=== PATIENT | female | born 1940 | race Caucasian/White ===

== ENCOUNTER → 2020-08-27 17:28 | Outpatient (CLI) | payer MEDICARE, OTHER, SELFPAY | PROVIDERS: PCP Family Medicine; Referring Provider Family Medicine; Visit Provider Family Medicine | DX: N39.0 Urinary tract infection, site not specified (principal) | CPT/HCPCS: 87086; 87088 ==

== ENCOUNTER 2020-10-01 15:33 | Inpatient (IN) | payer MEDICARE, OTHER, SELFPAY ==
[2020-10-01] VITALS (9 sets, daily range): BP systolic 88–106; BP diastolic 61–74; PULSE 104–127; RESP 16–30; TEMP 36.4–36.9; O2SAT 84–100; BMI 23.4; BMI 23.3
--- NOTE | 2020-10-01 16:11 | EDS_ITS ---
HPI History of Present Illness Chief Complaint: Palpitations Detail of Chief Complaint: Paroxysmal intermittent atrial fibrillation and dyspnea Informant: patient and family Onset/Context/Timing Onset: Days (A. fib since Sunday dyspnea for approximately 1 week) Context: Sudden Onset Timing: Continuous and Intermittent (The atrial fibrillation is intermittent per interrogation of pacemaker/AICD) Quality: The dyspnea has been constant and has increased dyspnea with walking. Current Severity: Mild Maximum Severity: Moderate Worsened by: Dyspnea on exertion Relieved by: Nothing Associated Symptoms Associated Symptoms: No chest pain, no infectious symptoms. Narrative Narrative: Patient is an elderly woman who presents with paroxysmal intermittent atrial fibrillation and dyspnea. Her initial blood pressure was 88/62. She is on Eliquis. She states has been compliant with her doses. She does complain of palpitations increased shortness of breath. She denies chest pain or pressure. She does have chronic orthopnea. Denies PND. She does admit to mild swelling of her legs. She is on Bumex. She is also taking amiodarone and metoprolol for her chronic atrial fibrillation. She denies fever, chills night sweats. She denies ocular, visual auditory symptoms. She denies abdominal pain, nausea, vomiting diarrhea. She denies dysuria, frequency, urgency or hematuria. She denies symptoms of claudication. Apparently she was last cardioverted 2 years ago. She was cardioverted by her [place] director hematology. Prior similar symptoms: Yes Recent Illness/Hospitalization: No [facility] Medical History CHF (congestive heart failure) Essential (primary) hypertension ICD (implantable cardioverter-defibrillator), dual, in situ Malignant neoplasm of female breast Mixed hyperlipidemia NSVT (nonsustained ventricular tachycardia) Persistent atrial fibrillation Primary cardiomyopathy Home Medications Atorvastatin Calcium 20 mg PO QHS 06/21/20 [History Last Taken Unknown] Bumetanide 2 mg PO BID 06/21/20 [History Last Taken Unknown] Eliquis 5 mg PO BID 06/21/20 [History Last Taken Unknown] Levothyroxine 50 mcg PO DAILY 06/21/20 [History Last Taken Unknown] Losartan Potassium 12.5 mg PO 06/21/20 [History Last Taken Unknown] Metolazone 2.5 mg PO 06/21/20 [History Last Taken Unknown] Metoprolol Tartrate 12.5 mg PO DAILY 06/21/20 [History Last Taken Unknown] Potassium Chloride 10 meq PO BID 06/21/20 [History Last Taken Unknown] Spironolactone 12.5 mg PO 06/21/20 [History Last Taken Unknown] Vitamin D 2,000 units PO QHS 06/21/20 [History Last Taken Unknown] Amiodarone 100 mg PO DAILY 07/28/20 [History Last Taken Unknown] digestive enzymes 1 tab PO DAILY 10/01/20 [History Last Taken Unknown] guaifenesin 600 mg PO QHS 10/01/20 [History Last Taken Unknown] loratadine 10 mg PO DAILY 10/01/20 [History Last Taken Unknown] polyethylene glycol 3350 [Miralax] 17 g PO DAILY PRN 10/01/20 [History Last Taken Unknown] Allergy/AdvReac Type Severity Reaction Status Date / Time No Known Allergies Allergy Verified 10/01/20 15:37 Social History (Updated 10/01/20 @ 16:[address] Priyank Larsen MD) household members: family housing: house Smoking Status: Never smoker alcohol intake: current alcohol intake frequency: other substance use type: does not use ROS ROS ED Constitutional Constitutional ED: Denies chills, fever(s) or subjective Eyes Eyes: Denies blurry vision, change in vision or diplopia ENT ENT ED: Denies ear pain, rhinorrhea or sore throat Cardiovascular Cardiovascular: Reports orthopnea, palpitations and racing heartbeat; Denies chest pain or paroxysmal nocturnal dyspnea Respiratory/Chest Respiratory/Chest: Reports dyspnea, dyspnea on exertion and orthopnea; Denies cough, paroxysmal nocturnal dyspnea or sputum Gastrointestinal Gastrointestinal: Denies abdominal pain, diarrhea, nausea or vomiting Genitourinary Genitourinary ED: Denies dysuria, hematuria or urinary frequency Musculoskeletal Musculoskeletal: Denies arthralgias, back pain, myalgias or neck pain Integumentary Reports rash and other Details: Patient has venous stasis dermatitis Neurologic Neurologic: Reports weakness; Denies headache(s) or paresthesias Endocrine Endocrinology: Denies polydipsia, polyphagia or polyuria Allergic/Immunologic Allergic/Immunologic ED: Denies urticaria EXAM Physical Exam Const Vital Signs: 10/01/20 15:34 10/01/20 16:00 10/01/20 16:11 Temperature 97.6 F L Temperature Source Temporal Pulse Rate 120 H 127 H Respiratory Rate 16 25 H Respiratory Effort Short of Breath Blood Pressure 88/62 L 106/61 Blood Pressure Mean 70 76 Pulse Ox 84 Oxygen Delivery Method Nasal Cannula Nasal Cannula Oxygen Flow Rate (L/min) 3 5 10/01/20 16:45 Temperature Temperature Source Pulse Rate Respiratory Rate Respiratory Effort Blood Pressure Blood Pressure Mean Pulse Ox Oxygen Delivery Method Nasal Cannula Oxygen Flow Rate (L/min) 5 Positive well nourished and well developed General Appearance ED: well developed and other Patient has mild retractions. She has mild conversational dyspnea. She appears cachectic. HEENT Reports dry mucous membranes HEENT Narrative: Nares patent. Ears normal. Posterior pharynx unremarkable. Trachea midline. No inspiratory expiratory stridor. Mouth ED: Yes dry mucous membranes Mouth: dry mucous membranes Eyes PERRL and EOMs intact bilaterally General Eye ED: Negative for pale conjunctiva or scleral icterus Neck no lymphadenopathy, supple and no JVD Resp Auscultation: rales bilateral mid and diminished lung sounds Cardio no murmurs Rate: tachycardic Rhythm: abnormal rhythm GI normal to inspection, nondistended, normoactive bowel sounds and non-tender Palpation: soft Back/Spine no CVA tenderness Cervical Spine: Negative for cervical spine tenderness Thoracic Spine / Upper Back: Negative for thoracic spinal tenderness or paraspinal muscle tenderness Extremity Negative for normal to inspection Extremity Narrative: Venous stasis dermatitis General Extremety ED: Yes edema; Negative for tenderness General Extremity: edema Neuro oriented x3 and CN's II-XII intact bilaterally Sensorium / Orientation: alert Psych mental status grossly normal Skin no rashes or lesions noted and no wounds MDM MDM MDM Narrative Medical decision making narrative: Clinically patient is in heart failure most likely due to the a BM/A. fib flutter with rapid ventricular response. Clinically she is fluid overloaded. 40 mg of Lasix IV push was ordered. EKG, chest x-ray and appropriate labs including troponin was ordered. Patient is on 3 diuretics and probable cause of her hyponatremia and hyperchloremia. Because of the elevated CO2 a VBG was ordered. We will need to discuss CODE STATUS. Patient is DNR Comfort Care arrest with no intubation or CPR. Hospitalist has seen patient and will admit to PCU Lab Data Labs: Laboratory Results - last 24 hr 10/01/20 10/01/20 10/01/20 16:00 16:00 16:00 WBC 12.1 H RBC 3.88 L Hgb 13.0 Hct 39.9 MCV 102.8 H MCH 33.5 H MCHC 32.6 RDW Std Deviation 56.2 H RDW Coeff of Tita 14.9 H Plt Count 185 MPV 10.2 Immature Gran % (Auto) 0.300 Neut % (Auto) 86.7 H Lymph % (Auto) 5.4 L Smyth % (Auto) 6.7 Eos % (Auto) 0.7 Baso % (Auto) 0.2 Absolute Neuts (auto) 10.5 H Absolute Lymphs (auto) 0.65 L Nucleated RBC % 0 Sodium 124 L Potassium 4.5 Chloride 72 L* Carbon Dioxide 43.0 H Anion Gap 9 BUN 46 H Creatinine 1.58 H Estim Creat Clear Calc 20.74 Est GFR (MDRD) Af Amer 41 L Est GFR (MDRD) Non-Af 34 L BUN/Creatinine Ratio 29.1 H Glucose 137 H Lactic Acid Calcium 10.3 H Total Bilirubin 1.20 H AST 58 H ALT 35 Alkaline Phosphatase 106 Troponin I < 0.015 B-Natriuretic Peptide 2427.1 H Total Protein 7.8 Albumin 3.7 Globulin 4.1 Albumin/Globulin Ratio 0.9 10/01/20 16:38 WBC RBC Hgb Hct MCV MCH MCHC RDW Std Deviation RDW Coeff of Tita Plt Count MPV Immature Gran % (Auto) Neut % (Auto) Lymph % (Auto) Smyth % (Auto) Eos % (Auto) Baso % (Auto) Absolute Neuts (auto) Absolute Lymphs (auto) Nucleated RBC % Sodium Potassium Chloride Carbon Dioxide Anion Gap BUN Creatinine Estim Creat Clear Calc Est GFR (MDRD) Af Amer Est GFR (MDRD) Non-Af BUN/Creatinine Ratio Glucose Lactic Acid 2.3 H* Calcium Total Bilirubin AST ALT Alkaline Phosphatase Troponin I B-Natriuretic Peptide Total Protein Albumin Globulin Albumin/Globulin Ratio Radiography Diagnostic Testing: Radiology Impression Chest X-Ray 10/01/20 16:42 IMPRESSION: Cardiomegaly with pulmonary edema. Cannot rule out superimposed infection in the right lower lung. Electronically Signed: Gio Campo MD at 17:15 EDT Tel , Service support , EKG Initial EKG: Interpretation: Atrial Fibrillation (Atrial fib flutter with ventricular rate of 131. QRS duration 140 ms. QT duration 388 ms. [place]anchard is to the left. There is a nonspecific intraventricular conduction delay and nonspecific ST changes due to the intraventricular conduction delay.) Critical Care Time Critical Care Time: Yes Critical care time (excluding procedures): 30-74 minutes (33 minutes), Including time spent: (History, physical, documentation, review of prior records from outside facility, initiation of treatment interpretation of laboratory results including EKG and chest x-ray), Discussing w/Patient &/or Family/Senior Instructional Designer, Discussing w/Consultants and Arranging Admission or Transfer Discharge Plan Triage Chief Complaint: Palpitations ED Provider: Priyank Larsen Dx/Rx/DC Orders Clinical Impression: Acute on chronic respiratory failure with hypercapnia, Atrial fibrillation with rapid ventricular response, Acute on chronic congestive heart failure, Hyponatremia, Hyperchloremia, Ataxia with lactic acidosis I, Arterial hypotension Prescriptions: No Action Atorvastatin Calcium tablet 20 mg PO QHS RF: 0 Bumetanide tablet 2 mg PO BID RF: 0 Eliquis tablet 5 mg PO BID RF: 0 Levothyroxine tablet 50 mcg PO DAILY RF: 0 Losartan Potassium tablet 12.5 mg PO RF: 0 Metolazone tablet 2.5 mg PO RF: 0 Metoprolol Tartrate tablet 12.5 mg PO DAILY RF: 0 Potassium Chloride tablet 10 meq PO BID RF: 0 Spironolactone tablet 12.5 mg PO RF: 0 Vitamin D capsule 2,000 units PO QHS RF: 0 Amiodarone 100 MG tablet 100 mg PO DAILY RF: 0 digestive enzymes Tablet 1 tab PO DAILY RF: 0 guaifenesin 600 mg Tablet Extended Release 600 mg PO QHS RF: 0 polyethylene glycol 3350 [Miralax] 17 gram Powder In Packet 17 g PO DAILY PRN (Reason: Constipation) RF: 0 loratadine 10 mg Tablet 10 mg PO DAILY RF: 0 Primary Care Provider: Carmen Lee Referrals: Carmen Lee MD [Primary Care Provider] - Disposition Disposition: Acute Care [facility]
--- NOTE | 2020-10-01 16:13 | EKG12_ITS ---
Test Reason : AFIB Blood Pressure : / mmHG Vent. Rate : 131 BPM Atrial Rate : 267 BPM P-R Int : 000 ms QRS Dur : 140 ms QT Int : 388 ms P-R-T Axes : 000 -76 102 degrees QTc Int : 572 ms Atrial flutter with variable A-V block Left axis deviation Non-specific intra-ventricular conduction block Nonspecific T wave abnormality Abnormal ECG Confirmed by URSULA DAMIAN, CHICHI ([id number]), editorial director VIPIN CHAGN ([id number]) on 10/04/2020 11:14:31 A M Referred By: HAN Confirmed By:JETT VERGARA MD
[2020-10-01] MEDS: Furosemide 40 MG/4 ML Vial IV ×2 (16:41→21:47)
--- NOTE | 2020-10-01 16:42 | RAD_ITS ---
INDICATION: Dyspnea, bilateral rales EXAMINATION/TECHNIQUE: X-RAY - XR Chest 1 View COMPARISON: None. FINDINGS: There is pulmonary edema. Tortuous and calcified thoracic aorta. The heart is mildly enlarged. Left-sided cardiac device. Multiple median sternotomy wires. Aortic valve replacement. No pleural effusion or pneumothorax. Senescent changes of the bones. RAD/Chest 1 View (Portable) IMPRESSION: Cardiomegaly with pulmonary edema. Cannot rule out superimposed infection in the right lower lung. Electronically Signed: Gio Campo MD at 17:15 EDT Tel , Service support ,
[2020-10-01 16:45] LABS: Absolute Lymphocyte Count 0.65 X10^3/uL (0.83-4.51); Absolute Neutrophil Count 10.5 X10^3/uL (2.0-7.7); Basophil# 0.03 X10^3/uL; Basophil% 0.2 % (0-1); Eosinophil# 0.08 X10^3/uL; Eosinophils% 0.7 % (0-5); Hematocrit 39.9 % (37-47); Lymphocyte # 0.65 X10^3/ul (0.83-4.51); Lymphocyte % 5.4 % (19-41); Mean Corp Hgb Conc 32.6 g/dL (32-36); Mean Corpuscular Hgb 33.5 pg (27.0-32.0); Mean Corpuscular Volume 102.8 fL (81-99); Mean Platelet Vol. 10.2 fl (6.2-12.0); Monocyte# 0.81 X10^3/uL; Monocyte% 6.7 % (0-10); NRBC Flagged by Analyzer 0 % (0-5); Neutrophil # 10.49 X10^3/uL (2.7-7.7); Neutrophil % 86.7 % (47-70); Platelet Count 185 K/mm3 (150-450); RBC Distribution Width CV 14.9 % (11.6-14.6); RBC Distribution Width SD 56.2 fl (35.1-43.9); Red Blood Count 3.88 M/mm3 (4.2-5.4); White Blood Count 12.1 K/mm3 (4.4-11.0)
[2020-10-01 17:03] LABS: BNP,B-Type NATRIURETIC PEPTIDE 2427.1 pg/mL (0-100)
[2020-10-01 17:21] LABS: ALB/GLOB Ratio 0.9 RATIO (0.9-2.4); AST(SGOT) 58 U/L (15-37); Alanine Aminotransfer ALT/SGPT 35 U/L (13-56); Albumin, Serum 3.7 g/dL (3.2-5.0); Alkaline Phosphatase 106 U/L (45-117); Anion Gap 9 (5-15); BUN 46 mg/dL (7-18); BUN/Creat Ratio 29.1 RATIO (10-20); Calcium,Total 10.3 mg/dL (8.5-10.1); Chloride 72 mmol/L (98-107); Creatinine, Serum 1.58 mg/dL (0.55-1.02); EST Glomerular Filtration Rate 34 mL/min (>60); Est Glom Filt Rate - Afr Amer 41 mL/min (>60); Estimated Creatinine Clearance 20.74 ml/min; Globulin 4.1 g/dL (2.2-4.2); Glucose 137 mg/dL (74-106); Potassium 4.5 mmol/L (3.5-5.1); Protein, Total 7.8 g/dL (6.4-8.2); Sodium Level 124 mmol/L (136-145)
[2020-10-01 17:21] LABS: Lactic Acid 2.3 mmol/L (0.4-1.9)
--- NOTE | 2020-10-01 18:03 | HP.PCM_ITS ---
Documented by User: Salma Guadalupe, JADA-C 10/01/20 18:18 HPI - General HPI Narrative JOSE MAHONEY, is a 80 F who presents with increasing shortness of breath. Patient states that she has had heart failure following treatment for breast cancer years ago. Patient is chronically on oxygen at 3 L nasal cannula. Patient with in [facility] in August for CHF exacerbation and states she recently moved from [place]. Daughter has discharge paperwork from [facility] but does not include all test completed during her admission. It is unclear whether a echocardiogram was performed at that time. Will request records from [facility]. [facility] Medical History (Updated 10/01/20 @ 18:41 by Mariah Eid) Breast cancer CHF (congestive heart failure) COPD (chronic obstructive pulmonary disease) Essential (primary) hypertension Hearing loss, left Hearing loss, right Hypothyroidism ICD (implantable cardioverter-defibrillator), dual, in situ Malignant neoplasm of female breast Mixed hyperlipidemia NSVT (nonsustained ventricular tachycardia) On home oxygen therapy Osteoporosis Persistent atrial fibrillation Primary cardiomyopathy Pulmonary hypertension Skin cancer of face Wears hearing aid in both ears Home Medications Atorvastatin Calcium 20 mg PO QHS 06/21/20 [History Last Taken Unknown] Bumetanide 2 mg PO BID 06/21/20 [History Last Taken Unknown] Eliquis 5 mg PO BID 06/21/20 [History Last Taken Unknown] Levothyroxine 50 mcg PO DAILY 06/21/20 [History Last Taken Unknown] Losartan Potassium 12.5 mg PO 06/21/20 [History Last Taken Unknown] Metolazone 2.5 mg PO 06/21/20 [History Last Taken Unknown] Metoprolol Tartrate 12.5 mg PO DAILY 06/21/20 [History Last Taken Unknown] Potassium Chloride 10 meq PO BID 06/21/20 [History Last Taken Unknown] Spironolactone 12.5 mg PO 06/21/20 [History Last Taken Unknown] Vitamin D 2,000 units PO QHS 06/21/20 [History Last Taken Unknown] Amiodarone 100 mg PO DAILY 07/28/20 [History Last Taken Unknown] cholecalciferol (vitamin D3) [Vitamin D3] 50 mcg PO DAILY 10/01/20 [History Last Taken Unknown] digestive enzymes 1 tab PO DAILY 10/01/20 [History Last Taken Unknown] guaifenesin 600 mg PO QHS 10/01/20 [History Last Taken Unknown] loratadine 10 mg PO DAILY 10/01/20 [History Last Taken Unknown] losartan 12.5 mg PO DAILY 10/01/20 [History Last Taken Unknown] metoprolol succinate 12.5 mg PO DAILY 10/01/20 [History Last Taken Unknown] mupirocin 1 applic TOPICAL BID 10/01/20 [History Last Taken 10/01/20] polyethylene glycol 3350 [Miralax] 17 g PO DAILY PRN 10/01/20 [History Last Taken Unknown] spironolactone 12.5 mg PO DAILY 10/01/20 [History Last Taken Unknown] Allergy/AdvReac Type Severity Reaction Status Date / Time amoxicillin AdvReac intolerance Verified 10/01/20 18:13 codeine AdvReac intolerance Verified 10/01/20 18:13 iodine AdvReac intolerance Verified 10/01/20 18:13 oxycodone AdvReac intolerance Verified 10/01/20 18:13 Penicillins AdvReac intolerance Verified 10/01/20 18:13 Surgical History (Updated 10/01/20 @ 18:38 by Mariah Eid) History of cataract removal with insertion of prosthetic lens History of mitral valve repair History of tricuspid valve repair Social History household members: family housing: house Smoking Status: Never smoker alcohol intake: current alcohol intake frequency: other substance use type: does not use ROS Constitutional Constitutional: Reports weight gain; Denies anorexia, chills, fatigue, malaise or weakness Cardiovascular Cardiovascular: Reports edema and palpitations; Denies chest pain or paroxysmal nocturnal dyspnea Respiratory/Chest Respiratory/Chest: Reports portable oxygen @ home, shortness of breath at rest and shortness of breath with exertion; Denies cough Gastrointestinal Gastrointestinal: Denies abdominal pain, constipation, diarrhea, nausea or vomiting Genitourinary Genitourinary: Denies dysuria Musculoskeletal Musculoskeletal: Denies back pain, extremity pain, joint pain or joint stiffness Integumentary Integumentary: Denies dry skin Neurologic Neurologic: Denies abnormal gait, abnormal speech, confusion or dizziness Psychiatric Psychiatric: Denies anxiety or depression Endocrine Endocrinology: Denies change in body appearance Hematologic/Lymphatic Hematologic/Lymphatic: Denies easy bleeding or easy bruising Vital Signs Vital Signs Vital Signs: 10/01/20 15:34 10/01/20 16:00 10/01/20 16:11 Temperature 97.6 F L Temperature Source Temporal Pulse Rate 120 H 127 H Respiratory Rate 16 25 H Respiratory Effort Short of Breath Blood Pressure 88/62 L 106/61 Blood Pressure Mean 70 76 Pulse Ox 84 Oxygen Delivery Method Nasal Cannula Nasal Cannula Oxygen Flow Rate (L/min) 3 5 10/01/20 16:45 Temperature Temperature Source Pulse Rate Respiratory Rate Respiratory Effort Blood Pressure Blood Pressure Mean Pulse Ox Oxygen Delivery Method Nasal Cannula Oxygen Flow Rate (L/min) 5 Weight Weight: 120 lb Body Mass Index (BMI) 23.4 Physical Exam Const alert and oriented x3 General Appearance: cooperative HEENT normocephalic and head/scalp atraumatic Eyes conjunctivae normal and no scleral icterus Neck no lymphadenopathy, supple and no JVD General: trachea midline Resp Effort and Inspection: tachypneic and labored Auscultation: wheezes expiratory wheezes Cardio S1 normal heart sound and S2 normal heart sound Rate: tachycardic Rhythm: abnormal rhythm irregularly irregular (History of A. fib) GI normal to inspection, nondistended, normoactive bowel sounds, soft to palpation and non-tender Extremity normal capillary refill and no clubbing, cyanosis or edema General Extremity: no tenderness to palpation of joints or extremities Skin General Skin Exam: no breakdown and turgor normal Lesions: no lesions Rashes: no rashes Neuro oriented x3, moves all extremities and no focal motor deficits Speech: speech normal Psych thought process normal, cooperative and affect normal Appearance: appropriate Results Lab / Micro Data Result Diagrams: 10/01/20 16:00 10/01/20 16:00 Labs: Laboratory Results - last 24 hr 10/01/20 10/01/20 10/01/20 16:00 16:00 16:00 WBC 12.1 H RBC 3.88 L Hgb 13.0 Hct 39.9 MCV 102.8 H MCH 33.5 H MCHC 32.6 RDW Std Deviation 56.2 H RDW Coeff of Tita 14.9 H Plt Count 185 MPV 10.2 Immature Gran % (Auto) 0.300 Neut % (Auto) 86.7 H Lymph % (Auto) 5.4 L [place] % (Auto) 6.7 Eos % (Auto) 0.7 Baso % (Auto) 0.2 Absolute Neuts (auto) 10.5 H Absolute Lymphs (auto) 0.65 L Nucleated RBC % 0 Sodium 124 L Potassium 4.5 Chloride 72 L* Carbon Dioxide 43.0 H Anion Gap 9 BUN 46 H Creatinine 1.58 H Estim Creat Clear Calc 20.74 Est GFR (MDRD) Af Amer 41 L Est GFR (MDRD) Non-Af 34 L BUN/Creatinine Ratio 29.1 H Glucose 137 H Lactic Acid Calcium 10.3 H Total Bilirubin 1.20 H AST 58 H ALT 35 Alkaline Phosphatase 106 Troponin I < 0.015 B-Natriuretic Peptide 2427.1 H Total Protein 7.8 Albumin 3.7 Globulin 4.1 Albumin/Globulin Ratio 0.9 10/01/20 16:38 WBC RBC Hgb Hct MCV MCH MCHC RDW Std Deviation RDW Coeff of Tita Plt Count MPV Immature Gran % (Auto) Neut % (Auto) Lymph % (Auto) [place] % (Auto) Eos % (Auto) Baso % (Auto) Absolute Neuts (auto) Absolute Lymphs (auto) Nucleated RBC % Sodium Potassium Chloride Carbon Dioxide Anion Gap BUN Creatinine Estim Creat Clear Calc Est GFR (MDRD) Af Amer Est GFR (MDRD) Non-Af BUN/Creatinine Ratio Glucose Lactic Acid 2.3 H* Calcium Total Bilirubin AST ALT Alkaline Phosphatase Troponin I B-Natriuretic Peptide Total Protein Albumin Globulin Albumin/Globulin Ratio Radiology Impression Chest X-Ray 10/01/20 16:42 IMPRESSION: Cardiomegaly with pulmonary edema. Cannot rule out superimposed infection in the right lower lung. Electronically Signed: Gio Campo MD at 17:15 EDT Tel , Service support , Assessment & Plan Assessment/Plan (1) Acute on chronic respiratory failure with hypercapnia: (2) Atrial fibrillation with rapid ventricular response: (3) Acute on chronic congestive heart failure: QUALIFIERS: Heart failure type: systolic Qualified Code(s): I50.23 - Acute on chronic systolic (congestive) heart failure (4) Hyponatremia: (5) Hyperchloremia: PLAN: 1. Acute on chronic congestive heart failure -Admit to PCU for continuous cardiac monitoring -We will hold as needed metolazone at this time, continue daily spironolactone. -We will hold p.o. Bumex, IV Lasix 40 mg every 8 hour ordered -Cardiac diet with 1500 mL fluid restriction ordered -Trend cardiac enzymes -Daily weights with strict intake and output ordered -PT and OT to eval and treat -EKG in a.m. -BMP and CBC daily, trend BUN and creatinine 2. Acute on chronic respiratory failure with hypercapnia -Likely due to #1 3. Atrial fibrillation with rapid ventricular response -Amiodarone bolus given in ER, will increase metoprolol succinate from 12.5 to 25 mg daily -Continuous cardiac monitoring with daily a.m. EKGs and EKG as needed with rhythm change 4. Hyponatremia -Likely secondary to diuretic therapy -Due to CHF exacerbation will not initiate IV fluids at this time -Trend daily with BMP -Will check a mag and Phos due to electrolyte imbalance 5. Hypochloremia -See #4 6. Hypertension -Continue spironolactone, metoprolol. -Due to patient borderline hypotension will hold losartan at this time 7. Hypothyroidism -Continue levothyroxine 8. Presence of an AICD -Recently evaluated per daughter history. DVT prophylaxis-patient chronically anticoagulated with Eliquis This patient was seen by Salma Guadalupe NP-C under the supervision of Dr. Hylton. Documented by User: Dr. Gabriel Hylton, 10/01/20 18:48 HPI - General General Date of Admission: 10/01/20 [facility] Medical History (Updated 10/01/20 @ 18:41 by Mariah Eid) Breast cancer CHF (congestive heart failure) COPD (chronic obstructive pulmonary disease) Essential (primary) hypertension Hearing loss, left Hearing loss, right Hypothyroidism ICD (implantable cardioverter-defibrillator), dual, in situ Malignant neoplasm of female breast Mixed hyperlipidemia NSVT (nonsustained ventricular tachycardia) On home oxygen therapy Osteoporosis Persistent atrial fibrillation Primary cardiomyopathy Pulmonary hypertension Skin cancer of face Wears hearing aid in both ears Home Medications Atorvastatin Calcium 20 mg PO QHS 06/21/20 [History Last Taken Unknown] Bumetanide 2 mg PO BID 06/21/20 [History Last Taken Unknown] Eliquis 5 mg PO BID 06/21/20 [History Last Taken Unknown] Levothyroxine 50 mcg PO DAILY 06/21/20 [History Last Taken Unknown] Losartan Potassium 12.5 mg PO 06/21/20 [History Last Taken Unknown] Metolazone 2.5 mg PO 06/21/20 [History Last Taken Unknown] Metoprolol Tartrate 12.5 mg PO DAILY 06/21/20 [History Last Taken Unknown] Potassium Chloride 10 meq PO BID 06/21/20 [History Last Taken Unknown] Spironolactone 12.5 mg PO 06/21/20 [History Last Taken Unknown] Vitamin D 2,000 units PO QHS 06/21/20 [History Last Taken Unknown] Amiodarone 100 mg PO DAILY 07/28/20 [History Last Taken Unknown] cholecalciferol (vitamin D3) [Vitamin D3] 50 mcg PO DAILY 10/01/20 [History Last Taken Unknown] digestive enzymes 1 tab PO DAILY 10/01/20 [History Last Taken Unknown] guaifenesin 600 mg PO QHS 10/01/20 [History Last Taken Unknown] loratadine 10 mg PO DAILY 10/01/20 [History Last Taken Unknown] losartan 12.5 mg PO DAILY 10/01/20 [History Last Taken Unknown] metoprolol succinate 12.5 mg PO DAILY 10/01/20 [History Last Taken Unknown] mupirocin 1 applic TOPICAL BID 10/01/20 [History Last Taken 10/01/20] polyethylene glycol 3350 [Miralax] 17 g PO DAILY PRN 10/01/20 [History Last Taken Unknown] spironolactone 12.5 mg PO DAILY 10/01/20 [History Last Taken Unknown] Allergy/AdvReac Type Severity Reaction Status Date / Time amoxicillin AdvReac intolerance Verified 10/01/20 18:13 codeine AdvReac intolerance Verified 10/01/20 18:13 iodine AdvReac intolerance Verified 10/01/20 18:13 oxycodone AdvReac intolerance Verified 10/01/20 18:13 Penicillins AdvReac intolerance Verified 10/01/20 18:13 Surgical History (Updated 10/01/20 @ 18:38 by Mariah L Gessel) History of cataract removal with insertion of prosthetic lens History of mitral valve repair History of tricuspid valve repair Social History household members: family housing: house Smoking Status: Never smoker alcohol intake: current alcohol intake frequency: other substance use type: does not use Results Lab / Micro Data Result Diagrams: 10/01/20 16:00 10/01/20 16:00 Charges/Coding Addendum Addendum: Patient was seen and examined independently of Nellie Guadalupe, she had to the emergency room today with complaints of increased shortness of breath, t his is been worsening over the last couple of days. Patient has a history of chronic systolic congestive heart failure and is on home oxygen at 3 L. On examination she appeared fatigued and unwell, she is not visibly short of breath at rest. Vital signs as documented. Skin warm and dry and without overt rashes. Neck without JVD, thyroid appears normal, trachea is midline, neck is supple. Lungs-decreased breath sounds are noted bilaterally. Heart exam notable for irregular rhythm, normal sounds and absence of murmurs, rubs or gallops. Abdomen unremarkable and without evidence of organomegaly, masses, or abdominal aortic enlargement, bowel sounds are present in all 4 quadrants, no abdominal tenderness was noted. Extremities nonedematous, no cyanosis was noted, no clubbing was noted. Neuro: Cranial nerves II through XII are grossly intact, no focal motor deficits were noted, sensation to light touch and pinprick is intact, motor exam 5/5 throughout. Psych: Patient is alert and oriented x3, she does not appear anxious or depressed, she does not appear agitated. Patient's chest x-ray shows signs of congestive heart failure, her chloride and sodium were low. Patient required 5 L of nasal cannula oxygen to maintain her pulse ox above 90%. Patient will be admitted to PCU for acute on chronic systolic congestive heart failure with acute on chronic hypoxic respiratory failure, she will be placed on IV diuretics, her beta-anay will be increased for better rate control, she was given IV amiodarone by the emergency room physician today. Echocardiogram will be obtained as we do not have a recent echocardiogram available, her daughter states her ejection fraction is 20%. I h traci reviewed Nellie Guadalupe's history and physical including her medical assessment and plan of care and endorse it. Visit Charges Inpatient E&M: 80402 Init Hosp L3
--- NOTE | 2020-10-01 18:09 | NURSING ---
109 TERELETKSY AFIB RVR, ACUTE ON CHRONIC RESP FAILURE, CHF
[2020-10-01] MEDS: Amiodarone 200 MG Tablet 100 MG PO (19:50)
[2020-10-01 20:41] LABS: Reflex Lactate? Y
[2020-10-01] MEDS: guaiFENesin 600 MG Tablet PO (21:49)
[2020-10-01] MEDS: Cholecalciferol (VIT D3) 25 MCG TABLET (1,000 UNITS) 50 MCG PO (21:49)
[2020-10-01] MEDS: Atorvastatin Calcium 20 MG Tablet PO (21:49)
[2020-10-01] MEDS: Potassium Chloride Oral Tablet 10 MEQ PO (21:49)
[2020-10-01] MEDS: APIXABAN 5 MG TABLET PO (21:49)
[2020-10-01 22:04] LABS: Lactic Acid 3.5 mmol/L (0.4-1.9)
[2020-10-02] VITALS (16 sets, daily range): BP systolic 91–116; BP diastolic 64–92; PULSE 88–140; RESP 18–22; TEMP 36.3–36.9; O2SAT 94–100
[2020-10-02] MEDS: Menthol/Lanolin/Calamine/Znox 113 GM Tube 1 APPLIC TOPICAL ×3 (05:00→22:11)
[2020-10-02] MEDS: Furosemide 40 MG/4 ML Vial IV ×2 (05:01→14:08)
[2020-10-02] MEDS: Levothyroxine 50 MCG Tablet PO (05:01)
--- NOTE | 2020-10-02 05:55 | ECHOD_ITS ---
Reason For Study: CHF Procedure This was a 2D Doppler, Color Flow transthoracic echocardiogram. The study was technically difficult. Pt had to sit upright for exam due to severe SOB. Exam performed portable in patient room. Left Ventricle Mildly dilated left ventricle. The estimated ejection fraction is 10-15 %. There is evidence of diastolic dysfunction. There is severe global hypokinesis of the left ventricle. Right Ventricle Mildly dilated right ventricle. There is a pacemaker lead in the right ventricle. Mild global right ventricular systolic dysfunction. Atria The left atrium is moderately enlarged. Normal right atrium. No doppler evidence for ASD. Mitral Valve Evidence of mitral valve repair noted. There is no mitral valve stenosis. Trivial mitral valve insufficiency. Tricuspid Valve There is no tricuspid stenosis. Moderate (2+) tricuspid valve insufficiency. Pulmonary artery systolic pressure is 60 mmHg. Aortic Valve Trisinus/trileaflet aortic valve. There is no aortic stenosis. Mild (1+) aortic valve insufficiency. Pulmonic Valve There is no pulmonic valvular stenosis. Trivial pulmonic valve insufficiency. Great Vessels Normal aortic root. Pericardium/Pleural No pericardial effusion. MMode/2D Measurements & Calculations LVIDd: 6.0 cm IVSd: 0.67 cm Ao root diam: 3.4 cm LVIDs: 5.6 cm LVPWd: 0.62 cm RVDd: 4.3 cm FS: 6.8 % LAV(MOD-bp): 78.4 ml LA A4 area: 25.6 cm2 LA dimension(2D): 4.3 cm LAV(MOD-bp) Indexed: 52.4 ml/m2 LAV(MOD-sp2): 71.1 ml LAV(MOD-sp4): 84.1 ml RA A4 area: 22.6 cm2 Time Measurements MV dec time: 0.14 sec Doppler Measurements & Calculations MV E max aissatou: 141.8 cm/sec MV V2 max: 158.8 cm/sec TV V2 max: 85.6 cm/sec MV max P.1 mmHg TV max P.9 mmHg MV V2 mean: 81.2 cm/sec TV V2 mean: 50.8 cm/sec MV mean P.3 mmHg TV mean P.2 mmHg MV V2 VTI: 18.3 cm PA V2 max: 65.0 cm/sec PI end-d aissatou: 194.8 cm/sec TR max aissatou: 368.9 cm/sec TR max P.4 mmHg ECHO/Echo Complete Interpretation Summary Mildly dilated left ventricle. The estimated ejection fraction is 10-15 %. There is evidence of diastolic dysfunction. There is severe global hypokinesis of the left ventricle. Mild global right ventricular systolic dysfunction. The left atrium is moderately enlarged. Trivial mitral valve insufficiency. Moderate (2+) tricuspid valve insufficiency. Pulmonary artery systolic pressure is 60 mmHg. Mild (1+) aortic valve insufficiency. Ordering Physician: Salma Guadalupe Referring Physician: MABEL LICEA Performed By: Lyssa Castorena, RDCS, RVT
--- NOTE | 2020-10-02 05:55 | EKG12_ITS ---
Test Reason : Blood Pressure : / mmHG Vent. Rate : 126 BPM Atrial Rate : 138 BPM P-R Int : 000 ms QRS Dur : 146 ms QT Int : 332 ms P-R-T Axes : 000 -54 094 degrees QTc Int : 480 ms Atrial fibrillation Left axis deviation Non-specific intra-ventricular conduction block Abnormal ECG When compared with ECG of 02-OCT-2020 05:03, MANUAL COMPARISON REQUIRED, DATA IS UNCONFIRMED Confirmed by VINAY DAMIAN, KACI ([id number]), sports editor VIPIN CHANG ([id number]) on 10/05/2020 9:38:37 AM Referred By: MARY Confirmed By:KACI MCLEAN MD
[2020-10-02 07:34] LABS: Absolute Lymphocyte Count 0.64 X10^3/uL (0.83-4.51); Absolute Neutrophil Count 8.2 X10^3/uL (2.0-7.7); Basophil# 0.04 X10^3/uL; Basophil% 0.4 % (0-1); Eosinophil# 0.07 X10^3/uL; Eosinophils% 0.7 % (0-5); Hematocrit 34.8 % (37-47); Hemoglobin 11.6 g/dL (12.0-15.0); Lymphocyte # 0.64 X10^3/ul (0.83-4.51); Lymphocyte % 6.6 % (19-41); Mean Corp Hgb Conc 33.3 g/dL (32-36); Mean Corpuscular Hgb 33.8 pg (27.0-32.0); Mean Corpuscular Volume 101.5 fL (81-99); Mean Platelet Vol. 9.8 fl (6.2-12.0); Monocyte# 0.73 X10^3/uL; Monocyte% 7.5 % (0-10); NRBC Flagged by Analyzer 0 % (0-5); Neutrophil % 84.4 % (47-70); Platelet Count 149 K/mm3 (150-450); RBC Distribution Width CV 14.8 % (11.6-14.6); RBC Distribution Width SD 55.5 fl (35.1-43.9); Red Blood Count 3.43 M/mm3 (4.2-5.4); White Blood Count 9.7 K/mm3 (4.4-11.0)
[2020-10-02 07:54] LABS: Anion Gap 10 (5-15); BUN 42 mg/dL (7-18); BUN/Creat Ratio 32.1 RATIO (10-20); Calcium,Total 9.7 mg/dL (8.5-10.1); Chloride 76 mmol/L (98-107); Creatinine, Serum 1.31 mg/dL (0.55-1.02); EST Glomerular Filtration Rate 42 mL/min (>60); Est Glom Filt Rate - Afr Amer 50 mL/min (>60); Estimated Creatinine Clearance 25.01 ml/min; Glucose 114 mg/dL (74-106); Magnesium 2.6 mg/dL (1.6-2.6); Phosphorus 3.3 mg/dL (2.5-4.9); Potassium 3.5 mmol/L (3.5-5.1); Sodium Level 126 mmol/L (136-145)
[2020-10-02] MEDS: Potassium Chloride Oral Tablet 20 MEQ PO ×2 (08:52→16:39)
[2020-10-02] MEDS: Amiodarone 200 MG Tablet 100 MG PO (08:52)
[2020-10-02] MEDS: APIXABAN 5 MG TABLET PO ×2 (08:53→22:12)
[2020-10-02] MEDS: Loratadine 10 MG Tablet PO (08:53)
--- NOTE | 2020-10-02 10:45 | PN.HOSP_ITS ---
Documented by User: JOYCE ChicasC 10/02/20 11:04 Subjective Subjective Patient seen and examined. Patient states that overnight her shortness of breath had improved slightly however she is currently feeling short of breath again. Patient also reports a new onset cough this morning. Patient currently denies fever, chills, chest pain, nausea, vomiting. Objective Data Objective Data Vital Signs: Vital Signs Temp Pulse Resp BP Pulse Ox 98.1 F 108 H 20 H 94/64 98 10/02/20 09:00 10/02/20 09:00 10/02/20 09:00 10/02/20 09:00 10/02/20 09:00 Oxygen Flow Rate (L/min) 4 Oxygen Delivery Method Nasal Cannula Weight: 119 lb 14.903 oz Body Mass Index (BMI) 23.3 Intake & Output: Intake and Output for Last 24 Hours 09/30/20 10/01/20 10/02/20 23:59 23:59 23:59 Intake Total 103 / 103 250 / 250 Output Total 200 / 200 Balance 103 / 53 50 / 50 Lab / Micro Data Result Diagrams: 10/02/20 07:10 10/02/20 07:10 Labs: Laboratory Results - last 24 hr 10/01/20 10/01/20 10/01/20 16:00 16:00 16:00 WBC 12.1 H RBC 3.88 L Hgb 13.0 Hct 39.9 MCV 102.8 H MCH 33.5 H MCHC 32.6 RDW Std Deviation 56.2 H RDW Coeff of Tita 14.9 H Plt Count 185 MPV 10.2 Immature Gran % (Auto) 0.300 Neut % (Auto) 86.7 H Lymph % (Auto) 5.4 L [place] % (Auto) 6.7 Eos % (Auto) 0.7 Baso % (Auto) 0.2 Absolute Neuts (auto) 10.5 H Absolute Lymphs (auto) 0.65 L Nucleated RBC % 0 Sodium 124 L Potassium 4.5 Chloride 72 L* Carbon Dioxide 43.0 H Anion Gap 9 BUN 46 H Creatinine 1.58 H Estim Creat Clear Calc 20.74 Est GFR (MDRD) Af Amer 41 L Est GFR (MDRD) Non-Af 34 L BUN/Creatinine Ratio 29.1 H Glucose 137 H Lactic Acid Calcium 10.3 H Phosphorus Magnesium Total Bilirubin 1.20 H AST 58 H ALT 35 Alkaline Phosphatase 106 Troponin I < 0.015 B-Natriuretic Peptide 2427.1 H Total Protein 7.8 Albumin 3.7 Globulin 4.1 Albumin/Globulin Ratio 0.9 10/01/20 10/01/20 10/01/20 16:38 19:50 21:10 WBC RBC Hgb Hct MCV MCH MCHC RDW Std Deviation RDW Coeff of Tita Plt Count MPV Immature Gran % (Auto) Neut % (Auto) Lymph % (Auto) [place] % (Auto) Eos % (Auto) Baso % (Auto) Absolute Neuts (auto) Absolute Lymphs (auto) Nucleated RBC % Sodium Potassium Chloride Carbon Dioxide Anion Gap BUN Creatinine Estim Creat Clear Calc Est GFR (MDRD) Af Amer Est GFR (MDRD) Non-Af BUN/Creatinine Ratio Glucose Lactic Acid 2.3 H* 3.5 H* Calcium Phosphorus Magnesium Total Bilirubin AST ALT Alkaline Phosphatase Troponin I 0.021 B-Natriuretic Peptide Total Protein Albumin Globulin Albumin/Globulin Ratio 10/01/20 10/02/20 10/02/20 22:35 07:10 07:10 WBC 9.7 RBC 3.43 L Hgb 11.6 L Hct 34.8 L MCV 101.5 H MCH 33.8 H MCHC 33.3 RDW Std Deviation 55.5 H RDW Coeff of Tita 14.8 H Plt Count 149 L MPV 9.8 Immature Gran % (Auto) 0.400 Neut % (Auto) 84.4 H Lymph % (Auto) 6.6 L [place] % (Auto) 7.5 Eos % (Auto) 0.7 Baso % (Auto) 0.4 Absolute Neuts (auto) 8.2 H Absolute Lymphs (auto) 0.64 L Nucleated RBC % 0 Sodium 126 L Potassium 3.5 Chloride 76 L Carbon Dioxide 40.0 H Anion Gap 10 BUN 42 H Creatinine 1.31 H Estim Creat Clear Calc 25.01 Est GFR (MDRD) Af Amer 50 L Est GFR (MDRD) Non-Af 42 L BUN/Creatinine Ratio 32.1 H Glucose 114 H Lactic Acid Calcium 9.7 Phosphorus 3.3 Magnesium 2.6 Total Bilirubin AST ALT Alkaline Phosphatase Troponin I 0.015 B-Natriuretic Peptide Total Protein Albumin Globulin Albumin/Globulin Ratio Radiography Diagnostic Testing: Radiology Impression Chest X-Ray 10/01/20 16:42 IMPRESSION: Cardiomegaly with pulmonary edema. Cannot rule out superimposed infection in the right lower lung. Electronically Signed: Gio Campo MD at 17:15 EDT Tel , Service support , Physical Exam Const alert and oriented x3 General Appearance: cooperative HEENT normocephalic and head/scalp atraumatic Eyes conjunctivae normal and no scleral icterus Neck no lymphadenopathy, supple and no JVD General: trachea midline Resp Effort and Inspection: tachypneic and labored Auscultation: wheezes expiratory wheezes Cardio S1 normal heart sound and S2 normal heart sound Rate: tachycardic Rhythm: abnormal rhythm irregularly irregular (History of A. fib) GI normal to inspection, nondistended, normoactive bowel sounds, soft to palpation and non-tender Extremity normal capillary refill and no clubbing, cyanosis or edema General Extremity: no tenderness to palpation of joints or extremities Skin General Skin Exam: no breakdown and turgor normal Lesions: no lesions Rashes: no rashes Neuro oriented x3, moves all extremities and no focal motor deficits Speech: speech normal Psych thought process normal, cooperative and affect normal Appearance: appropriate Assessment & Plan Assessment/Plan (1) Acute on chronic congestive heart failure: QUALIFIERS: Heart failure type: systolic Qualified Code(s): I50.23 - Acute on chronic systolic (congestive) heart failure (2) Atrial fibrillation with rapid ventricular response: (3) Acute on chronic respiratory failure with hypercapnia: PLAN: 1. Acute on chronic congestive heart failure -Continue cardiac monitoring -Continue to hold as needed metolazone at this time -Continue daily spironolactone. -Continue to hold p.o. Bumex, IV Lasix 40 mg every 8 hour ordered -Cardiac diet with 1500 mL fluid restriction ordered -Cardiac enzymes negative x3 -Daily weights with strict intake and output -PT and OT to eval and treat -Echo ordered, results pending 2. Acute on chronic respiratory failure with hypercapnia -Likely due to #1 3. Acute on chronic kidney disease -Patient baseline BUN and creatinine unknown at this time, requested records from [facility] where patient's PCP is -Creatinine improved from 1.58 yesterday to 1.31 today with diuresis. 4. Atrial fibrillation with rapid ventricular response -Increased metoprolol succinate to 25 mg daily dose was held due to patient systolic blood pressure less than 100. -Heart rate currently 104-110, improved from yesterday -Continuous cardiac monitoring with daily a.m. EKGs and EKG as needed with rhythm change 5. Hyponatremia -Likely secondary to diuretic therapy -Due to CHF exacerbation will not initiate IV fluids at this time -Trend daily with BMP, slightly improved from 124 to 126 today 6. Hypochloremia -See #4 -Slightly improved from 72 to 76 today -Continue to trend with daily BMP 7. Hypertension -Continue spironolactone, metoprolol. -Due to patient continued hypotension will hold losartan at this time 8. Hypothyroidism -Continue levothyroxine 9. Presence of an AICD -Recently evaluated per daughter history. DVT prophylaxis-patient chronically anticoagulated with Eliquis This patient was seen by ALEXANDER Chicas under the supervision of Dr. Mcqueen. Documented by User: Dr. George Mcqueen MD 10/02/20 14:25 Objective Data Lab / Micro Data Result Diagrams: 10/02/20 07:10 10/02/20 07:10 Assessment & Plan Addt'l Comments This patient was seen in conjunction with Salma MUNOZ. I have independently interviewed and examined the patient and reviewed pertinent historical, laboratory, and other data. Please refer Miguelangel COOKC's note for details of this patient's presentation, findings, and recommendations. I have reviewed Salma MUNOZ's note and concur with documented findings. In brief, patient is a old female admitted with shortness of breath Physical Examination: GENERAL: Frail looking HEENT: Atraumatic; EYES; Anicteric, Normal Conjunctiva NECK; supple, normal thyroid, RESPIRATORY: Diminished to auscultation CARDIOVASCULAR: Irregular S1-S2 GI: soft, normoactive bowel sounds, : No Renal angle tenderness; EXTREMITIES: No edema, no clubbing, MUSCULOSKELETAL: no muscle waisting NEURO: Awake; no lateralizing signs. SKIN: No Rash PSYCH; Flat affect Assessment: 1. Acute on chronic congestive heart failure with suspected preserved ejection fraction 2. A. fib with RVR 3. Acute on chronic hypercapnic and hypoxic respiratory failure 4. Hypochloremic hyponatremia 5. Essential hypertension 6. Hypothyroidism 7. Cardiomyopathy status post AICD placement 8. Hypothyroidism Recommendations: 1. I have discussed the results of my overview and impressions with the patient 2. Options for management were reviewed Charges/Coding Visit Charges Inpatient E&M: 45351 Subs Hosp L3
--- NOTE | 2020-10-02 11:45 | CASEMGMT ---
RN JESSICA CASH MANAGEMENT CLERK CM to room to meet with patient for initial transition planning/care coordination assessment. RN JESSICA introduced self and role at [facility].? Pt voices understanding and consents to assessment at this time.? Pt sitting up in chair in room in no distress at this time.? Pt is A/O, but is forgetful at times and asked for MARAL LOPEZ to call her niece, Jessica, to answer some questions and to discuss d/c planning w/her. Call placed to Jessica at this time. The following information gathered from both pt and Jessica. Care providers, pharmacy, and demographics verified/updated at this time. PCP: Dr Lee Specialists: Dr Christie--director craft center [facility], Dr Obregon-pacer/defib device specialist, Dr Hernandez-ENT, [facility] Preferred Pharmacy: [facility] Insurance: [facility] Prescription Benefit:? Yes Living Will/HPOA:? Has completed LW and Healthcare POA, who is her niece, Jessica. These were done in [place]. Pt and Jessica both made aware new ones would need completed in [place]. Pt states she would like to complete new ones. HENOK, [facility], made aware. Pt/Jessica were provided w/Supervisor Detasseling Crew # to call as an OP if SW unable to meet w/pt before she discharges. LNOK: Niece, Jessica. Living Arrangements: Lives alone in one-story home w/1 step to enter w/handrail. Independent w/ADL's. Has private caregiver that comes daily for approx 8 hrs/day for IADL's and meal prep. Jessica live in [place], but comes to see pt once a week and gets her groceries. Jessica manages her medication and appts. Transportation: Jessica DME: ?Has the following DME:? shower chair, grab bars, walker, rollator, medical alert button. [facility] @ 3 L/M [facility]. Has a BSC available, but does not use. No need for further DME at this time.? HHC/SNF: No hx of SNF. Has had [facility] in the past. Jessica made aware pt only able to ambulate 18' today w/therapy and additional therapy recommended. She states she is hopeful pt will be able to regain more strength prior to discharge as she prefers for pt to be able to return home. Pt voices same wishes. Jessica states would like for pt to get HHC again and would like [facility] as 1st choice and [facility] as 2nd choice. List of HHC providers including quality and resource use data and consistent with the patient's preferred geographic region, medical needs, and insurance network placed in pt's room for Jessica and pt to review. ? Per Jessica, pt is active w[facility]. Nirav @ [facility] notified of pt's admission to [facility] via e-mail. Jessica/pt both made aware [facility] would be placed on hold and would follow w/pt again after HHC has discharged pt. They voice understanding. Pt and Jessica wish for pt to return home w/HHC, if able. CM to follow for any further discharge planning/needs.? Pt/Jessica voice no further concerns/needs at this time.? Advised them to ask for CM if any further questions/concerns/needs arise.? They voice understanding. PLAN: ?Home w/HHC if pt increases enough strength to be able to return home safely. Order has been placed for HHC referral: SN, PT/OT, but referral has not been made yet. Per Jessica and pt, they do not feel pt needs a HHC aide. Pt is agreeable to this d/c plan as well. Follow for any increase in O2 need @ discharge. Flora LUX RN CM Pt was provided with list of? providers including quality and resource use data and consistent with the patient's preferred geographic region, medical needs, and insurance network. ?The pt's preferred provider is?
[2020-10-02] MEDS: Metoprolol(XL)Succ 25 MG Tablet PO (11:56)
[2020-10-02] MEDS: 0.9% Saline Lock 10 ML Syringe IV ×2 (14:08→16:39)
--- NOTE | 2020-10-02 14:27 | CT_ITS ---
EXAM: CT CHEST WITHOUT INTRAVENOUS CONTRAST CLINICAL INDICATION: SOB TECHNIQUE: Helically acquired images were obtained of the chest without intravenous contrast. This CT exam was performed using one or more of the following dose reduction techniques: automated exposure control, adjustment of the mA and/or kV according to patient size, and/or use of iterative reconstruction technique. Octapoly report generation technology utilized. COMPARISON: None. FINDINGS: LIMITATIONS: No gross acute abnormality seen on limited views of the upper abdomen. LUNGS AND PLEURAL SPACES: Hyperexpansion of the lungs. Widespread moderate to marked interstitial prominence most likely chronic fibrosis. However, atypical inflammatory process and/or interstitial edema not excluded. Findings most pronounced in the lower lung justice. Diffuse thickening of bronchial eckert consistent with bronchitis, probably chronic. No gross effusions. No mass. No pneumothorax. HEART: Moderate to marked cardiomegaly. Pacer. Previous CABG. Heavily calcified coronary arteries. MEDIASTINUM: Unremarkable. No mediastinal or hilar adenopathy. Esophagus is unremarkable. No hiatal hernia. THYROID: Unremarkable. No thyroid lesions. BONES/JOINTS: Widespread demineralization. Several upper thoracic compression fractures, likely old. VASCULATURE: Heavily calcified aorta. No aneurysm. OTHER FINDINGS: No definite acute or significant abnormality seen. CT/Chest without Contrast IMPRESSION: 1. COPD. 2. Widespread interstitial disease most suggestive of fibrosis. Edema and/or atypical inflammatory process not excluded. 3. Cardiomegaly. Electronically Signed: Don Field MD at 18:29 EDT , Service support ,
--- NOTE | 2020-10-02 14:30 | EKG12_ITS ---
Test Reason : AM EKG Blood Pressure : / mmHG Vent. Rate : 099 BPM Atrial Rate : 258 BPM P-R Int : 000 ms QRS Dur : 144 ms QT Int : 362 ms P-R-T Axes : 000 -54 101 degrees QTc Int : 464 ms Atrial flutter with variable A-V block Left axis deviation Non-specific intra-ventricular conduction block Nonspecific T wave abnormality Abnormal ECG When compared with ECG of 01-OCT-2020 15:46, MANUAL COMPARISON REQUIRED, DATA IS UNCONFIRMED Confirmed by VINAY DAMIAN, KACI ([id number]), editor producer VIPIN CHANG ([id number]) on 10/05/2020 9:38:59 AM Referred By: LIGIA Confirmed By:KACI MCLEAN MD
[2020-10-02 15:36] LABS: Allen Test Positive; Base Excess 13 mmol/L (-2 to +2); Blood Gas Specimen Type ART; O2 Delivery Device Cannula; PO2 144 mmHG (75-100); SITE R Radial; SO2 100 % (95-99); Total Carbon Dioxide 35 mmol/L; pH 7.63 (7.35-7.45)
--- NOTE | 2020-10-02 15:36 | CPS ---
Qns for repeat sample. Charge nurse notified.
[2020-10-02] MEDS: Polyethylene Glycol 3350 17 GM PACKET PO (16:38)
[2020-10-02] MEDS: Furosemide 20 MG/2 ML VIAL IV (16:39)
--- NOTE | 2020-10-02 20:23 | CASEMGMT ---
HENOK Note Referral Source: [employer] Referral Reason: Advanced Directive Request Sw met with patient and provided her with advanced directives. Patient reports no other issues or needs. Trinidad MCCOLLUM
[2020-10-02] MEDS: Atorvastatin Calcium 20 MG Tablet PO (22:12)
[2020-10-02] MEDS: Ondansetron 4 MG/2 ML Vial IV (22:12)
[2020-10-02] MEDS: Cholecalciferol (VIT D3) 25 MCG TABLET (1,000 UNITS) 50 MCG PO (22:13)
[2020-10-02] MEDS: Furosemide 100 MG/10 ML Vial 60 MG IV (22:26)
[2020-10-02] MEDS: guaiFENesin 1,200 MG Tablet 1200 MG PO (23:25)
[2020-10-03] VITALS (15 sets, daily range): BP systolic 88–110; BP diastolic 52–79; PULSE 80–106; RESP 18–20; TEMP 36.3–36.9; O2SAT 95–100
[2020-10-03 06:31] LABS: Absolute Lymphocyte Count 0.87 X10^3/uL (0.83-4.51); Basophil# 0.02 X10^3/uL; Basophil% 0.2 % (0-1); Eosinophil# 0.01 X10^3/uL; Eosinophils% 0.1 % (0-5); Hematocrit 38.4 % (37-47); Hemoglobin 12.9 g/dL (12.0-15.0); Lymphocyte # 0.87 X10^3/ul (0.83-4.51); Lymphocyte % 8.1 % (19-41); Mean Corp Hgb Conc 33.6 g/dL (32-36); Mean Corpuscular Hgb 34.4 pg (27.0-32.0); Mean Corpuscular Volume 102.4 fL (81-99); Mean Platelet Vol. 10.2 fl (6.2-12.0); Monocyte# 0.78 X10^3/uL; Monocyte% 7.3 % (0-10); NRBC Flagged by Analyzer 0 % (0-5); Neutrophil # 8.99 X10^3/uL (2.7-7.7); Neutrophil % 83.7 % (47-70); Platelet Count 151 K/mm3 (150-450); RBC Distribution Width SD 56.7 fl (35.1-43.9); Red Blood Count 3.75 M/mm3 (4.2-5.4); White Blood Count 10.7 K/mm3 (4.4-11.0)
[2020-10-03] MEDS: Furosemide 100 MG/10 ML Vial 60 MG IV (06:32)
[2020-10-03] MEDS: Menthol/Lanolin/Calamine/Znox 113 GM Tube 1 APPLIC TOPICAL ×3 (06:33→20:18)
[2020-10-03 06:59] LABS: Anion Gap 9 (5-15); BUN 58 mg/dL (7-18); BUN/Creat Ratio 28.7 RATIO (10-20); Calcium,Total 10.3 mg/dL (8.5-10.1); Chloride 76 mmol/L (98-107); Creatinine, Serum 2.02 mg/dL (0.55-1.02); EST Glomerular Filtration Rate 25 mL/min (>60); Est Glom Filt Rate - Afr Amer 31 mL/min (>60); Estimated Creatinine Clearance 16.22 ml/min; Glucose 122 mg/dL (74-106); Sodium Level 123 mmol/L (136-145)
--- NOTE | 2020-10-03 08:32 | EX.PCM.CONCC ---
Assessment & Plan Assessment/Plan (1) Chronic hypoxemic respiratory failure: PLAN: RECOMMENDATIONS: 1. Continue diuretic regimen as tolerated by hemodynamics and renal function. 2. Continue amiodarone as ordered. 3. Continue baseline supplemental oxygen requirement at 3 L/min. 4. The patient can follow-up in the pulmonary medicine clinic 2 weeks after discharge, at which time, PFTs can be ordered. 5. Will sign off from a pulmonary perspective. Please call with any additional questions. IMPRESSIONS: 1. Chronic hypoxemic respiratory failure The patient does have a baseline 3 L/min supplemental oxygen requirement along with a history of congestive heart failure and atrial fibrillation. Although she does report a history of COPD, this diagnosis is questionable. Her recent CT chest did reveal interstitial groundglass changes, which could represent atypical infection, edema or evolving interstitial lung disease. However, in light of the patient's presentation, coupled with her elevated BNP, I do suspect that these findings are likely related to her heart failure. Although the patient is on amiodarone, she has been on the medication, per her account, for a number of years at a low-dose daily. Amiodarone related pulmonary toxicity would be more of a diagnosis of exclusion. At this time, she is at her baseline from a respiratory perspective. Therefore, I do not feel that it is imperative to discontinue her amiodarone or start her on steroids. I would be more inclined to continue her diuretic therapy for now. The patient can follow-up in the pulmonary medicine clinic after discharge, at which time, we can monitor her longitudinally with PFTs. I would not even consider discontinuing the patient's amiodarone until I had a chance to discuss her case with her primary senior computer specialist. 2. History of congestive heart failure/atrial fibrillation Continue current medical management. Continue amiodarone as ordered. 3. Questionable history of COPD The patient was never a smoker herself, but did report secondhand smoke exposure. Her diagnosis of COPD is questionable. As noted above, if the patient wishes to follow-up in the pulmonary medicine clinic, baseline PFTs can be obtained to better assess her lung function. This note was generated with [employer] software. It may contain incorrect words, spelling, and punctuation that were not noted in checking the note before signing. HPI Consult Data Date of Consult: 10/03/20 HPI Narrative Reason for Consultation: Questionable amiodarone toxicity HPI Narrative: The patient is a 80-year-old female, with a history as outlined below, who presented to the emergency department on October 01 with heart palpitations and dyspnea. The patient has a history of congestive heart failure, chronic hypoxemic respiratory failure, questionable COPD and history of breast CA status post treatment. The patient recently relocated to the area from [place] approximately 6 months ago. The patient denies a personal smoking history, but does report secondhand smoke exposure. She does not utilize any inhalers at her baseline on a regular basis. She does have a baseline 3 L/min supplemental oxygen requirement. The patient takes amiodarone 100 mg daily and reports that she has been on that medication for a number of years. On presentation to the emergency department, the patient was noted to be afebrile and hemodynamically stable. Initial laboratory evaluation revealed a white blood cell count of 12,000. Chemistry profile revealed a sodium of 124, chloride of 72, bicarbonate of 43, creatinine of 1.58, lactate of 2.3, total bili of 1.2 and BNP of 2427. Troponin was negative. Chest x-ray revealed cardiomegaly and pulmonary edema. The patient was placed on scheduled diuretic therapy and admitted to the progressive care unit for further management. Surface echocardiogram revealed a mildly dilated LV with an ejection fraction of 10 to 15% along with evidence of diastolic dysfunction. There was severe global hypokinesis of the LV. The RV was mildly dilated with mild global RV systolic dysfunction and a pulmonary artery systolic pressure estimated to be 60 mmHg. [facility] Medical History (Updated 10/03/20 @ 08:[address] Turner Farah, DO) Breast cancer CHF (congestive heart failure) COPD (chronic obstructive pulmonary disease) Essential (primary) hypertension Hearing loss, left Hearing loss, right Hypothyroidism ICD (implantable cardioverter-defibrillator), dual, in situ Malignant neoplasm of female breast Mixed hyperlipidemia NSVT (nonsustained ventricular tachycardia) On home oxygen therapy Osteoporosis Persistent atrial fibrillation Primary cardiomyopathy Pulmonary hypertension Skin cancer of face Wears hearing aid in both ears Home Medications Atorvastatin Calcium 20 mg PO QHS 06/21/20 [History Last Taken 09/30/20] Bumetanide 2 mg PO BID 06/21/20 [History Last Taken 10/01/20] Eliquis 5 mg PO BID 06/21/20 [History Last Taken 10/01/20] Levothyroxine 50 mcg PO DAILY 06/21/20 [History Last Taken 10/01/20] Metolazone 2.5 mg PO DAILY PRN 06/21/20 [History Last Taken Unknown] Potassium Chloride 10 meq PO BID 06/21/20 [History Last Taken 09/30/20] Amiodarone 100 mg PO DAILY 07/28/20 [History Last Taken 10/01/20] cholecalciferol (vitamin D3) [Vitamin D3] 50 mcg PO DAILY 10/01/20 [History Last Taken Unknown] digestive enzymes 1 tab PO DAILY 10/01/20 [History Last Taken 10/01/20] guaifenesin 600 mg PO QHS 10/01/20 [History Last Taken 09/30/20] loratadine 10 mg PO DAILY 10/01/20 [History Last Taken 10/01/20] losartan 12.5 mg PO DAILY 10/01/20 [History Last Taken 10/01/20] metoprolol succinate 12.5 mg PO DAILY 10/01/20 [History Last Taken 10/01/20] mupirocin 1 applic TOPICAL BID 10/01/20 [History Last Taken 10/01/20] polyethylene glycol 3350 [Miralax] 17 g PO DAILY PRN 10/01/20 [History Last Taken Unknown] spironolactone 12.5 mg PO DAILY 10/01/20 [History Last Taken 09/27/20] Allergy/AdvReac Type Severity Reaction Status Date / Time amoxicillin AdvReac intolerance Verified 10/01/20 18:13 codeine AdvReac intolerance Verified 10/01/20 18:13 iodine AdvReac intolerance Verified 10/01/20 18:13 oxycodone AdvReac intolerance Verified 10/01/20 18:13 Penicillins AdvReac intolerance Verified 10/01/20 18:13 Surgical History (Updated 10/01/20 @ 18:38 by Mariah Eid) History of cataract removal with insertion of prosthetic lens History of mitral valve repair History of tricuspid valve repair Social History household members: family housing: house Smoking Status: Never smoker alcohol intake: current alcohol intake frequency: other substance use type: does not use ROS Constitutional Constitutional: Reports fatigue; Denies chills or fever(s) Eyes Eyes: Denies blurry vision or change in vision ENT HEENT: Denies dizziness or headache(s) Cardiovascular Cardiovascular: Reports irregular heart rhythm; Denies chest pain or dizziness Respiratory/Chest Respiratory/Chest: Denies chest tightness, cough or dyspnea Gastrointestinal Gastrointestinal: Denies abdominal pain, diarrhea, nausea or vomiting Genitourinary Genitourinary: Denies difficulty urinating Musculoskeletal Musculoskeletal: Denies arthralgias or back pain Integumentary Integumentary: Denies lesions, rash or skin ulcer Neurologic Neurologic: Denies abnormal gait or abnormal speech Psychiatric Psychiatric: Denies anxiety or depression Endocrine Endocrinology: Denies fatigue Hematologic/Lymphatic Hematologic/Lymphatic: Denies easy bleeding or easy bruising Physical Exam Const alert and no apparent distress General Appearance: cooperative and frail HEENT normocephalic, head/scalp atraumatic and moist oral mucous membranes Eyes PERRL and EOMs intact bilaterally Neck supple General: trachea midline Resp normal respiratory effort and no use of accessory muscles Auscultation: rales and diminished lung sounds; Negative for rhonchi or wheezes Cardio S1 normal heart sound and S2 normal heart sound Rhythm: abnormal rhythm irregularly irregular GI normal to inspection, nondistended, normoactive bowel sounds Extremity no clubbing, cyanosis or edema Skin no rashes or lesions noted Neuro moves all extremities and no focal motor deficits Psych Mood & Affect: flat affect Lab / Micro Data Result Diagrams: 10/03/20 06:15 10/03/20 06:15 Labs: Laboratory Results - last 24 hr 10/03/20 10/03/20 06:15 06:15 WBC 10.7 RBC 3.75 L Hgb 12.9 Hct 38.4 MCV 102.4 H MCH 34.4 H MCHC 33.6 RDW Std Deviation 56.7 H RDW Coeff of Tita 15.0 H Plt Count 151 MPV 10.2 Immature Gran % (Auto) 0.600 Neut % (Auto) 83.7 H Lymph % (Auto) 8.1 L Marin % (Auto) 7.3 Eos % (Auto) 0.1 Baso % (Auto) 0.2 Absolute Neuts (auto) 9.0 H Absolute Lymphs (auto) 0.87 Nucleated RBC % 0 Sodium 123 L Potassium 5.0 Chloride 76 L Carbon Dioxide 38.0 H Anion Gap 9 BUN 58 H Creatinine 2.02 H Estim Creat Clear Calc 16.22 Est GFR (MDRD) Af Amer 31 L Est GFR (MDRD) Non-Af 25 L BUN/Creatinine Ratio 28.7 H Glucose 122 H Calcium 10.3 H ABG Data ABG results: ABG 10/02/20 15:32 Specimen Type ART Sample Site R Radial pH 7.63 H* Bicarbonate Actual 34.0 H Total CO2 35 Base Excess 13 H O2 Saturation 100 H ABG pCO2 32.0 L ABG pO2 144 H Chucho Test Positive O2 Delivery Device Cannula Liter Flow 4.0 Crit Call To/Read Back Yes Radiology Impression Chest CT 10/02/20 14:27 IMPRESSION: 1. COPD. 2. Widespread interstitial disease most suggestive of fibrosis. Edema and/or atypical inflammatory process not excluded. 3. Cardiomegaly. Electronically Signed: Don Field MD at 18:29 EDT , Service support , Charges/Coding Visit Charges Inpatient E&M: 81885 Init Hosp L3
[2020-10-03] MEDS: Loratadine 10 MG Tablet PO (08:33)
[2020-10-03] MEDS: APIXABAN 5 MG TABLET PO ×2 (08:33→20:17)
[2020-10-03] MEDS: Potassium Chloride Oral Tablet 20 MEQ PO (08:33)
[2020-10-03] MEDS: Levothyroxine 50 MCG Tablet PO (08:34)
[2020-10-03] MEDS: Amiodarone 200 MG Tablet 100 MG PO (08:34)
[2020-10-03] MEDS: guaiFENesin 1,200 MG Tablet 1200 MG PO ×2 (08:35→20:17)
--- NOTE | 2020-10-03 09:47 | PN.HOSP_ITS ---
Documented by User: Eva Pradhan NP, [employer] [employer] 10/03/20 10:24 Subjective Subjective Patient seen and examined. Reports improvement in shortness of breath. Continues to have shortness of breath with exertion. Denies other symptoms or complaints. Objective Data Objective Data Vital Signs: Vital Signs Temp Pulse Resp BP Pulse Ox 97.3 F L 93 18 89/66 L 95 10/03/20 08:15 10/03/20 08:15 10/03/20 08:15 10/03/20 08:15 10/03/20 08:15 Oxygen Flow Rate (L/min) 3 Oxygen Delivery Method Nasal Cannula Weight: 119 lb 14.903 oz Body Mass Index (BMI) 23.3 Intake & Output: Intake and Output for Last 24 Hours 10/01/20 10/02/20 10/03/20 23:59 23:59 23:59 Intake Total 103 / 103 1090 / 1090 0 / 0 Output Total 350 / 350 Balance 103 / 53 740 / 740 0 / 0 Lab / Micro Data Result Diagrams: 10/03/20 06:15 10/03/20 06:15 Labs: Laboratory Results - last 24 hr 10/03/20 10/03/20 06:15 06:15 WBC 10.7 RBC 3.75 L Hgb 12.9 Hct 38.4 MCV 102.4 H MCH 34.4 H MCHC 33.6 RDW Std Deviation 56.7 H RDW Coeff of Tita 15.0 H Plt Count 151 MPV 10.2 Immature Gran % (Auto) 0.600 Neut % (Auto) 83.7 H Lymph % (Auto) 8.1 L Simpson % (Auto) 7.3 Eos % (Auto) 0.1 Baso % (Auto) 0.2 Absolute Neuts (auto) 9.0 H Absolute Lymphs (auto) 0.87 Nucleated RBC % 0 Sodium 123 L Potassium 5.0 Chloride 76 L Carbon Dioxide 38.0 H Anion Gap 9 BUN 58 H Creatinine 2.02 H Estim Creat Clear Calc 16.22 Est GFR (MDRD) Af Amer 31 L Est GFR (MDRD) Non-Af 25 L BUN/Creatinine Ratio 28.7 H Glucose 122 H Calcium 10.3 H ABG Data ABG results: ABG 10/02/20 15:32 Specimen Type ART Sample Site R Radial pH 7.63 H* Bicarbonate Actual 34.0 H Total CO2 35 Base Excess 13 H O2 Saturation 100 H ABG pCO2 32.0 L ABG pO2 144 H Chucho Test Positive O2 Delivery Device Cannula Liter Flow 4.0 Crit Call To/Read Back Yes Radiography Diagnostic Testing: Radiology Impression Chest CT 10/02/20 14:27 IMPRESSION: 1. COPD. 2. Widespread interstitial disease most suggestive of fibrosis. Edema and/or atypical inflammatory process not excluded. 3. Cardiomegaly. Electronically Signed: Don Field MD at 18:29 EDT , Service support , Physical Exam Const alert, oriented x3 and no apparent distress Orientation / Consciousness: awake, oriented to person, oriented to place and oriented to time HEENT normocephalic and moist oral mucous membranes Eyes PERRL, EOMs intact bilaterally and conjunctivae normal Neck no lymphadenopathy Resp Auscultation: diminished lung sounds and other Scattered faint crackles Cardio Rhythm: abnormal rhythm other (Atrial fibrillation) Peripheral Pulses: pulses 2+ throughout GI normal to inspection, nondistended, normoactive bowel sounds, non-tender and non-distended Extremity normal to inspection Skin no rashes or lesions noted Lesions: no lesions Rashes: no rashes Trauma: no lacerations or abrasions Neuro CN's II-XII intact bilaterally, no focal motor deficits, no sensory deficits noted and deep tendon reflexes 2+ bilaterally Psych mental status grossly normal and affect normal Assessment & Plan Assessment/Plan (1) Atrial fibrillation with rapid ventricular response: (2) Acute on chronic respiratory failure with hypercapnia: (3) Acute on chronic congestive heart failure: QUALIFIERS: Heart failure type: systolic Qualified Code(s): I50.23 - Acute on chronic systolic (congestive) heart failure PLAN: 1. Acute on chronic heart failure with reduced ejection fra ction/end-stage CHF secondary to nonischemic cardiomyopathy-echocardiogram demonstrated an EF of 10 to 15%, moderate tricuspid valve insufficiency, pulmonary artery systolic pressure 60 mmHg. Echocardiogram August 2020 at [facility] demonstrated an EF of 20%. Patient is on Bumex, spironolactone at baseline. Placed on IV Lasix on admission, discontinued this a.m. due to worsening creatinine. Nephrology consulted. Recommend palliative discussion given severe cardiomyopathy. Resume home Bumex regimen with further adjustment per nephrology. 2. Persistent atrial fibrillation with RVR-on Eliquis, metoprolol increased, on amiodarone, rate controlled. 3. Acute on chronic hypoxic and hypercapnic respiratory failure-pulmonary medicine following. Chronic respiratory failure secondary to CHF with questionable history of COPD. Recent CT of chest showed interstitial groundglass changes which may represent interstitial lung disease. On 3 L nasal cannula at baseline. Plan to follow-up with pulmonary medicine as outpatient for further outpatient evaluation and management. 4. Acute kidney injury on suspected CKD stage IIIb-no history of prior labs for comparison. Hold further IV Lasix. Trend BMP. Nephrology consulted. 5. Hyponatremia-suspect secondary to diuretic regimen. Trend labs. 6. Hypertension-stable, continue Aldactone, metoprolol with hold parameters. 7. Hyperlipidemia-continue statin. 8. Nonischemic cardiomyopathy status post AICD placement- echo as noted above. Continue medical management. 9. Hypothyroidism- continue Synthroid. 10. History of mitral valve annuloplasty/tricuspid valve annuloplasty (2014) 11. History of breast cancer-in remission. DVT prophylaxis- Eiquis This patient was seen by ALEXANDER Short under the supervision of Dr. Mcqueen. Documented by User: Dr. George Mcqueen MD 10/03/20 10:35 Objective Data Lab / Micro Data Result Diagrams: 10/03/20 06:15 10/03/20 06:15 Assessment & Plan Addt'l Comments This patient was seen in conjunction with Eva COOKC. I have independently interviewed and examined the patient and reviewed pertinent historical, laboratory, and other data. Please refer to Eva COOKC's note for details of this patient's presentation, findings, and recommendations. I have reviewed Eva COOKC's note and concur with documented findings. In brief, patient is a old female admitted with shortness of breath 10/03/2020; CT of the chest obtained the day prior demonstrated Widespread interstitial disease most suggestive of fibrosis. Edema and/or atypical inflammatory process not excluded.. Consult subsequently placed to pulmonary medicine. Patient has also experienced worsening of her hyponatremia. Held her diuretics consult placed to nephrology. Plan was to have obtained urine electrolytes however with patient being on diuretics results will not be helpful Physical Examination: GENERAL: Frail looking HEENT: Atraumatic; EYES; Anicteric, Normal Conjunctiva NECK; supple, normal thyroid, RESPIRATORY: Diminished to auscultation CARDIOVASCULAR: Irregular S1-S2 GI: soft, normoactive bowel sounds, : No Renal angle tenderness; EXTREMITIES: No edema, no clubbing, MUSCULOSKELETAL: no muscle waisting NEURO: Awake; no lateralizing signs. SKIN: No Rash PSYCH; Flat affect Assessment: 1. Acute on chronic congestive heart failure with suspected preserved ejection fraction 2. A. fib with RVR 3. Acute on chronic hypercapnic and hypoxic respiratory failure 4. Hypochloremic hyponatremia 5. Essential hypertension 6. Hypothyroidism 7. Cardiomyopathy status post AICD placement 8. Hypothyroidism Recommendations: 1. I have discussed the results of my overview and impressions with the patient 2. Options for management were reviewed Charges/Coding Visit Charges Inpatient E&M: 11988 [facility] Hosp L3
[2020-10-03] MEDS: 0.9% Saline Lock 10 ML Syringe IV (14:24)
[2020-10-03] MEDS: Ondansetron 4 MG/2 ML Vial IV (14:24)
--- NOTE | 2020-10-03 17:14 | CON.PCM.RE_ITS ---
Assessment & Plan Assessment/Plan (1) Acute kidney failure: (2) Lactic acidosis: (3) Hyponatremia: (4) Acute on chronic respiratory failure with hypercapnia: (5) Atrial fibrillation with rapid ventricular response: PLAN: Unknown baseline creatinine. Acute kidney injury is likely from decreased effective volume related to overdiuresis with home diuretics. Lactic level is high. Sodium level is dropping. I believe the patient needs IV fluid. I will start gentle hydration at 50 cc/h. I will hold Aldactone and Bumex. Please avoid FLAVIA inhibitor before now Poor candidate for renal replacement therapy if kidney function continues to worsen Monitor lactic acid level, renal function panel volume status and urine output Rest of management as per the cardiology and primary service Thank you for the consult. Renal team will continue to follow Call for any question Cecily Leslie MD HPI Consult Data Date of Consult: 10/03/20 HPI Narrative HPI Narrative: JOSE MAHONEY, is a 80 F with extensive past medical history of systolic heart failure with ejection fraction in the 20s percent, COPD, hypertension, hypothyroidism, breast cancer, cardiac arrhythmia with A. fib. Chronic respiratory failure Patient present to the hospital with complaining of increased shortness of breath. CT chest showed cardiomegaly and possible incisional fibrosis but edema could not be ruled out .patient was admitted with CHF exacerbation. Patient was kept on home Bumex 2 mg twice a day/ At home patient is taken losartan 12.5 mg p.o. daily, Bumex along with metolazone and Aldactone. Renal team was consulted today for worsening kidney function. Baseline creatinine is unknown. Patient admitted with a creatinine 1.58 mg deciliter and increase next day to 1.7 and today to 2.0. Also sodium level dropped to 123 today. Lactic acid is increased to 3.5. Patient still complaining of shortness of breath and epigastric pain. She is on nasal cannula 3 mL/min. Blood pressures in the low side systolic blood pressure between 80 and 100 Patient not making much urine There has been no documented IV contrast exposure/no NSAID use No skin rash. No gross hematuria Review of system: 12 system review is negative except shortness of breath, epigastric and chest pain and generalized weakness [facility] Medical History (Updated 10/03/20 @ 17:[address] Cecily Leslie MD) Breast cancer CHF (congestive heart failure) COPD (chronic obstructive pulmonary disease) Essential (primary) hypertension Hearing loss, left Hearing loss, right Hypothyroidism ICD (implantable cardioverter-defibrillator), dual, in situ Malignant neoplasm of female breast Mixed hyperlipidemia NSVT (nonsustained ventricular tachycardia) On home oxygen therapy Osteoporosis Persistent atrial fibrillation Primary cardiomyopathy Pulmonary hypertension Skin cancer of face Wears hearing aid in both ears Home Medications Atorvastatin Calcium 20 mg PO QHS 06/21/20 [History Last Taken 09/30/20] Bumetanide 2 mg PO BID 06/21/20 [History Last Taken 10/01/20] Eliquis 5 mg PO BID 06/21/20 [History Last Taken 10/01/20] Levothyroxine 50 mcg PO DAILY 06/21/20 [History Last Taken 10/01/20] Metolazone 2.5 mg PO DAILY PRN 06/21/20 [History Last Taken Unknown] Potassium Chloride 10 meq PO BID 06/21/20 [History Last Taken 09/30/20] Amiodarone 100 mg PO DAILY 07/28/20 [History Last Taken 10/01/20] cholecalciferol (vitamin D3) [Vitamin D3] 50 mcg PO DAILY 10/01/20 [History Last Taken Unknown] digestive enzymes 1 tab PO DAILY 10/01/20 [History Last Taken 10/01/20] guaifenesin 600 mg PO QHS 10/01/20 [History Last Taken 09/30/20] loratadine 10 mg PO DAILY 10/01/20 [History Last Taken 10/01/20] losartan 12.5 mg PO DAILY 10/01/20 [History Last Taken 10/01/20] metoprolol succinate 12.5 mg PO DAILY 10/01/20 [History Last Taken 10/01/20] mupirocin 1 applic TOPICAL BID 10/01/20 [History Last Taken 10/01/20] polyethylene glycol 3350 [Miralax] 17 g PO DAILY PRN 10/01/20 [History Last Taken Unknown] spironolactone 12.5 mg PO DAILY 10/01/20 [History Last Taken 09/27/20] Allergy/AdvReac Type Severity Reaction Status Date / Time amoxicillin AdvReac intolerance Verified 10/01/20 18:13 codeine AdvReac intolerance Verified 10/01/20 18:13 iodine AdvReac intolerance Verified 10/01/20 18:13 oxycodone AdvReac intolerance Verified 10/01/20 18:13 Penicillins AdvReac intolerance Verified 10/01/20 18:13 Surgical History (Updated 10/01/20 @ 18:38 by Mariah Eid) History of cataract removal with insertion of prosthetic lens History of mitral valve repair History of tricuspid valve repair Social History household members: family housing: house Smoking Status: Never smoker alcohol intake: current alcohol intake frequency: other substance use type: does not use Physical Exam Narrative Patient is looking, awake alert button shortness of breath. Neck no JVD. Head atraumatic normocephalic. Mouth: Dry mucosa Heart: S1-S2 regular Chest decreased breath sounds over both lung spaces. Abdomen no tenderness positive bowel sounds no distention Neurology: Moving her limbs. Awake alert oriented Extremity: Mild lower extremities edema Lab / Micro Data Result Diagrams: 10/03/20 06:15 10/03/20 06:15 Labs: Laboratory Results - last 24 hr 10/03/20 10/03/20 06:15 06:15 WBC 10.7 RBC 3.75 L Hgb 12.9 Hct 38.4 MCV 102.4 H MCH 34.4 H MCHC 33.6 RDW Std Deviation 56.7 H RDW Coeff of Tita 15.0 H Plt Count 151 MPV 10.2 Immature Gran % (Auto) 0.600 Neut % (Auto) 83.7 H Lymph % (Auto) 8.1 L Hardin % (Auto) 7.3 Eos % (Auto) 0.1 Baso % (Auto) 0.2 Absolute Neuts (auto) 9.0 H Absolute Lymphs (auto) 0.87 Nucleated RBC % 0 Sodium 123 L Potassium 5.0 Chloride 76 L Carbon Dioxide 38.0 H Anion Gap 9 BUN 58 H Creatinine 2.02 H Estim Creat Clear Calc 16.22 Est GFR (MDRD) Af Amer 31 L Est GFR (MDRD) Non-Af 25 L BUN/Creatinine Ratio 28.7 H Glucose 122 H Calcium 10.3 H Radiology Impression Chest CT 10/02/20 14:27 IMPRESSION: 1. COPD. 2. Widespread interstitial disease most suggestive of fibrosis. Edema and/or atypical inflammatory process not excluded. 3. Cardiomegaly. Electronically Signed: Don Field MD at 18:29 EDT , Service support ,
[2020-10-03] MEDS: 0.9% Normal Saline 1,000 ML 50 ML IV (18:49)
[2020-10-03] MEDS: Cholecalciferol (VIT D3) 25 MCG TABLET (1,000 UNITS) 50 MCG PO (20:17)
[2020-10-03] MEDS: Atorvastatin Calcium 20 MG Tablet PO (20:17)
[2020-10-04] VITALS (17 sets, daily range): BP systolic 86–115; BP diastolic 46–66; PULSE 81–119; RESP 12–20; TEMP 36.1–36.9; O2SAT 93–99
[2020-10-04] MEDS: Menthol/Lanolin/Calamine/Znox 113 GM Tube 1 APPLIC TOPICAL ×3 (04:27→21:50)
[2020-10-04] MEDS: Levothyroxine 50 MCG Tablet PO (04:27)
[2020-10-04 05:37] LABS: Absolute Lymphocyte Count 0.57 X10^3/uL (0.83-4.51); Absolute Neutrophil Count 17.5 X10^3/uL (2.0-7.7); Basophil# 0.03 X10^3/uL; Basophil% 0.1 % (0-1); Hematocrit 37.1 % (37-47); Hemoglobin 12.1 g/dL (12.0-15.0); Lymphocyte # 0.57 X10^3/ul (0.83-4.51); Lymphocyte % 2.8 % (19-41); Mean Corp Hgb Conc 32.6 g/dL (32-36); Mean Corpuscular Hgb 34.2 pg (27.0-32.0); Mean Corpuscular Volume 104.8 fL (81-99); Mean Platelet Vol. 10.8 fl (6.2-12.0); Monocyte# 1.78 X10^3/uL; Monocyte% 8.8 % (0-10); NRBC Flagged by Analyzer 0 % (0-5); Neutrophil # 17.51 X10^3/uL (2.7-7.7); POSITIVE DIFFERENTIAL YES; Platelet Count 155 K/mm3 (150-450); RBC Distribution Width CV 14.8 % (11.6-14.6); Red Blood Count 3.54 M/mm3 (4.2-5.4); White Blood Count 20.2 K/mm3 (4.4-11.0)
[2020-10-04 05:38] LABS: Differential Indicated SCAN CRITERIA MET
[2020-10-04 06:13] LABS: Anion Gap 17 (5-15); BUN 76 mg/dL (7-18); Chloride 75 mmol/L (98-107); Creatinine, Serum 2.81 mg/dL (0.55-1.02); EST Glomerular Filtration Rate 17 mL/min (>60); Est Glom Filt Rate - Afr Amer 21 mL/min (>60); Estimated Creatinine Clearance 11.66 ml/min; Glucose 96 mg/dL (74-106); Potassium 6.4 mmol/L (3.5-5.1); Sodium Level 123 mmol/L (136-145)
--- NOTE | 2020-10-04 06:34 | EKG12_ITS ---
Test Reason : Blood Pressure : / mmHG Vent. Rate : 090 BPM Atrial Rate : 133 BPM P-R Int : 000 ms QRS Dur : 162 ms QT Int : 466 ms P-R-T Axes : 000 -72 104 degrees QTc Int : 570 ms Sinus tachycardia with A-V dissociation and Wide QRS rhythm Left axis deviation Left bundle branch block Abnormal ECG When compared with ECG of 02-OCT-2020 14:52, MANUAL COMPARISON REQUIRED, DATA IS UNCONFIRMED Confirmed by VINAY DAMIAN, KACI ([id number]), assignment editor VIPIN CHANG ([id number]) on 10/05/2020 9:35:28 AM Referred By: LOUIE Confirmed By:KACI MCLEAN MD
[2020-10-04] MEDS: Dextrose 50%-Water 25 GM/50 ML DISP.SYRIN IV (07:59)
[2020-10-04] MEDS: Insulin Lispro 5 UNIT in Syringe 0 ML 6 UNIT IV (08:04)
[2020-10-04] MEDS: Sodium Polystyrene Sulfonate 15 GM/60 ML UDC 30 GM PO (08:11)
[2020-10-04] MEDS: 0.9% Saline Lock 10 ML Syringe IV ×2 (08:11→22:17)
[2020-10-04] MEDS: Ondansetron 4 MG/2 ML Vial IV (08:23)
--- NOTE | 2020-10-04 10:03 | PN.CC_ITS ---
Assessment & Plan Assessment/Plan (1) Chronic hypoxemic respiratory failure: PLAN: RECOMMENDATIONS: 1. Continue diuretic regimen as tolerated by hemodynamics and renal function. 2. Continue amiodarone as ordered. 3. Continue baseline supplemental oxygen requirement at 3 L/min. 4. The patient can follow-up in the pulmonary medicine clinic 2 weeks after discharge, at which time, PFTs can be ordered. 5. Will sign off from a pulmonary perspective. Please call with any additional questions. IMPRESSIONS: 1. Chronic hypoxemic respiratory failure The patient does have a baseline 3 L/min supplemental oxygen requirement along with a history of congestive heart failure and atrial fibrillation. Although she does report a history of COPD, this diagnosis is questionable. Her recent CT chest did reveal interstitial groundglass changes, which could represent atypical infection, edema or evolving interstitial lung disease. However, in light of the patient's presentation, coupled with her elevated BNP, I do suspect that these findings are likely related to her heart failure. Although the patient is on amiodarone, she has been on the medication, per her account, for a number of years at a low-dose daily. Amiodarone related pulmonary toxicity would be more of a diagnosis of exclusion. At this time, she is at her baseline from a respiratory perspective. It is not recommended that patient be discontinued from amiodarone or initiated on steroids at this time. Will defer to the warrant server on further optimization. 2. History of congestive heart failure/atrial fibrillation Continue current medical management. Continue amiodarone as ordered. 3. Questionable history of COPD The patient was never a smoker herself, but did report secondhand smoke exposure. Her diagnosis of COPD is questionable. As noted above, if the cedrick tristan wishes to follow-up in the pulmonary medicine clinic, baseline PFTs can be obtained to better assess her lung function. Volume overload can simulate a pattern of COPD on PFT. This note was generated with [employer] dictation software. It may contain incorrect words, spelling, and punctuation that were not noted in checking the note before signing. Subjective Subjective Patient did okay overnight. Patient feels subjectively slightly improved compared to yesterday. However, patient has had some issues with nausea. Patient does not feel that her breathing is at its baseline, but is improved compared to yesterday. Patient is not reporting any chest pain. Patient does report some response to Zofran and attributes her nausea to all the medicines you are giving me. Objective Data Objective Data Vital Signs: Vital Signs Temp Pulse Resp BP Pulse Ox 36.6 C 81 16 87/50 L 96 10/04/20 08:31 10/04/20 08:31 10/04/20 08:31 10/04/20 08:31 10/04/20 08:31 Oxygen Flow Rate (L/min) 3 Oxygen Delivery Method Nasal Cannula Weight: 54.5 kg Body Mass Index (BMI) 23.3 Intake & Output: Intake and Output for Last 24 Hours 10/02/20 10/03/20 10/04/20 23:59 23:59 23:59 Intake Total 1090 / 1090 600 / 700 320 / 320 Output Total 350 / 350 200 / 200 Balance 740 / 740 400 / 500 320 / 320 Lab / Micro Data Result Diagrams: 10/04/20 05:24 10/04/20 05:24 Labs: Laboratory Results - last 24 hr 10/04/20 10/04/20 05:24 05:24 WBC 20.2 H RBC 3.54 L Hgb 12.1 Hct 37.1 MCV 104.8 H MCH 34.2 H MCHC 32.6 RDW Std Deviation 57.0 H RDW Coeff of Tita 14.8 H Plt Count 155 MPV 10.8 Immature Gran % (Auto) 1.300 H Neut % (Auto) 87.0 H Lymph % (Auto) 2.8 L [place] % (Auto) 8.8 Eos % (Auto) 0.0 Baso % (Auto) 0.1 Absolute Neuts (auto) 17.5 H Absolute Lymphs (auto) 0.57 L Nucleated RBC % 0 [address] Path Review May foll Sodium 123 L Potassium 6.4 H* Chloride 75 L Carbon Dioxide 31.0 Anion Gap 17 H BUN 76 H Creatinine 2.81 H Estim Creat Clear Calc 11.66 Est GFR (MDRD) Af Amer 21 L Est GFR (MDRD) Non-Af 17 L BUN/Creatinine Ratio 27.0 H Glucose 96 Calcium 10.0 Physical Exam Const alert and no apparent distress General Appearance: cooperative and frail HEENT normocephalic, head/scalp atraumatic and moist oral mucous membranes Eyes PERRL and EOMs intact bilaterally Neck supple General: trachea midline Resp no use of accessory muscles Resp Narrative: Fair effort. Auscultation: rales and diminished lung sounds; Negative for rhonchi or wheezes Cardio S1 normal heart sound and S2 normal heart sound Rhythm: abnormal rhythm irregularly irregular Heart Sounds: murmur systolic III/ decrescendo GI normal to inspection, nondistended, normoactive bowel sounds Extremity General Extremity: edema Skin no rashes or lesions noted Skin Narrative: Dermal atrophy noted Neuro moves all extremities and no focal motor deficits Psych Mood & Affect: flat affect Charges/Coding Visit Charges Inpatient E&M: 78988 Subs Hosp L2
[2020-10-04 11:37] LABS: Anion Gap 15 (5-15); BUN 82 mg/dL (7-18); Calcium,Total 9.6 mg/dL (8.5-10.1); Chloride 79 mmol/L (98-107); Creatinine, Serum 3.15 mg/dL (0.55-1.02); EST Glomerular Filtration Rate 15 mL/min (>60); Est Glom Filt Rate - Afr Amer 18 mL/min (>60); Glucose 219 mg/dL (74-106); Sodium Level 124 mmol/L (136-145)
[2020-10-04] MEDS: Polyethylene Glycol 3350 17 GM PACKET 34 GM PO (12:28)
[2020-10-04] MEDS: guaiFENesin 1,200 MG Tablet 1200 MG PO ×2 (12:28→22:14)
[2020-10-04] MEDS: Amiodarone 200 MG Tablet 100 MG PO (12:28)
[2020-10-04] MEDS: APIXABAN 2.5 MG TABLET PO ×2 (12:28→22:14)
[2020-10-04] MEDS: Loratadine 10 MG Tablet PO (12:28)
[2020-10-04] MEDS: 0.9% Normal Saline 1,000 ML 50 ML IV (12:29)
--- NOTE | 2020-10-04 14:25 | PCM.PN.HOSP ---
Documented by User: Eva Pradhan NP, [employer] 10/04/20 14:37 Subjective Subjective Patient seen and examined. Reports improvement in breathing. Discussed with patient worsening renal function and known end-stage heart failure diagnosis. Discussed palliative/hospice options. Patient agreeable to palliative referral however unsure about hospice at this point. Objective Data Objective Data Vital Signs: Vital Signs Temp Pulse Resp BP Pulse Ox 97.8 F 97 12 101/54 L 98 10/04/20 11:13 10/04/20 11:13 10/04/20 11:13 10/04/20 11:13 10/04/20 11:13 Oxygen Flow Rate (L/min) 3 Oxygen Delivery Method Nasal Cannula Weight: 120 lb 2.431 oz Body Mass Index (BMI) 23.3 Intake & Output: Intake and Output for Last 24 Hours 10/02/20 10/03/20 10/04/20 23:59 23:59 23:59 Intake Total 1090 / 1090 600 / 700 1683.33 / 1683.33 Output Total 350 / 350 200 / 200 Balance 740 / 740 400 / 500 1683.33 / 1683.33 Lab / Micro Data Result Diagrams: 10/04/20 05:24 10/04/20 11:18 Labs: Laboratory Results - last 24 hr 10/04/20 10/04/20 10/04/20 05:24 05:24 11:18 WBC 20.2 H RBC 3.54 L Hgb 12.1 Hct 37.1 MCV 104.8 H MCH 34.2 H MCHC 32.6 RDW Std Deviation 57.0 H RDW Coeff of Tita 14.8 H Plt Count 155 MPV 10.8 Immature Gran % (Auto) 1.300 H Neut % (Auto) 87.0 H Lymph % (Auto) 2.8 L [place] % (Auto) 8.8 Eos % (Auto) 0.0 Baso % (Auto) 0.1 Absolute Neuts (auto) 17.5 H Absolute Lymphs (auto) 0.57 L Nucleated RBC % 0 Diff Path Review May foll Sodium 123 L 124 L Potassium 6.4 H* 5.0 Chloride 75 L 79 L Carbon Dioxide 31.0 30.0 Anion Gap 17 H 15 BUN 76 H 82 H Creatinine 2.81 H 3.15 H Estim Creat Clear Calc 11.66 10.40 Est GFR (MDRD) Af Amer 21 L 18 L Est GFR (MDRD) Non-Af 17 L 15 L BUN/Creatinine Ratio 27.0 H 26.0 H Glucose 96 219 H Calcium 10.0 9.6 Radiography Diagnostic Testing: Radiology Impression Echocardiogram 10/02/20 05:55 Interpretation Summary Mildly dilated left ventricle. The estimated ejection fraction is 10-15 %. There is evidence of diastolic dysfunction. There is severe global hypokinesis of the left ventricle. Mild global right ventricular systolic dysfunction. The left atrium is moderately enlarged. Trivial mitral valve insufficiency. Moderate (2+) tricuspid valve insufficiency. Pulmonary artery systolic pressure is 60 mmHg. Mild (1+) aortic valve insufficiency. Ordering Physician: Salma Guadalupe Referring Physician: MABEL LICEA Performed By: Lyssa Castorena, RDCS, RVT Physical Exam Const alert, oriented x3 and no apparent distress Orientation / Consciousness: awake, oriented to person, oriented to place and oriented to time HEENT normocephalic and moist oral mucous membranes Eyes PERRL, EOMs intact bilaterally and conjunctivae normal Neck no lymphadenopathy Resp clear to auscultation bilaterally Auscultation: diminished lung sounds Cardio regular rate, regular rhythm and no murmurs Peripheral Pulses: pulses 2+ throughout GI normal to inspection, nondistended, normoactive bowel sounds, non-tender and non-distended Extremity normal to inspection Skin no rashes or lesions noted Lesions: no lesions Rashes: no rashes Trauma: no lacerations or abrasions Neuro CN's II-XII intact bilaterally, no focal motor deficits, no sensory deficits noted and deep tendon reflexes 2+ bilaterally Psych Mood & Affect: flat affect Assessment & Plan Assessment/Plan (1) Acute on chronic respiratory failure with hypercapnia: (2) Acute on chronic congestive heart failure: QUALIFIERS: Heart failure type: systolic Qualified Code(s): I50.23 - Acute on chronic systolic (congestive) heart failure (3) Acute kidney failure: PLAN: 1. Acute on chronic heart failure with reduced ejection fraction/end-stage CHF secondary to nonischemic cardiomyopathy-echocardiogram demonstrated an EF of 10 to 15%, moderate tricuspid valve insufficiency, pulmonary artery systolic pressure 60 mmHg. Echocardiogram August 2020 at [facility] demonstrated an EF of 20%. Patient is on Bumex, spironolactone at baseline. Placed on IV Lasix on admission, discontinued due to worsening creatinine. Nephrology consulted. Recommend palliative/hospice. Patient agreeable to palliative. Will discuss with POA as well. Nephrology held home Bumex as well. 2. Persistent atrial fibrillation with RVR-on Eliquis, metoprolol increased, on amiodarone, rate controlled. 3. Acute on chronic hypoxic and hypercapnic respiratory failure-pulmonary medicine following. Chronic respiratory failure secondary to CHF with questionable history of COPD. Recent CT of chest showed interstitial groundglass changes which may represent interstitial lung disease. On 3 L nasal cannula at baseline. Plan to follow-up with pulmonary medicine as outpatient for further outpatient evaluation and management. 4. Acute kidney injury on suspected CKD stage IIIb-no history of prior labs for comparison. Hold further diuretics. Trend BMP. Nephrology consulted. 5. Hyponatremia-suspect secondary to diuretic regimen. Trend labs. 6. Hypertension-stable, continue metoprolol with hold parameters. Aldactone on hold. 7. Hyperlipidemia-continue statin. 8. Nonischemic cardiomyopathy status post AICD placement- echo as noted above. Continue medical management. 9. Hypothyroidism- continue Synthroid. 10. History of mitral valve annuloplasty/tricuspid valve annuloplasty (2015) 11. History of breast cancer-in remission. DVT prophylaxis- Eliquis This patient was seen by ALEXANDER Short under the supervision of Dr. Huggins. Documented by User: Dr. Deepthi Huggins DO 10/04/20 17:35 Subjective Subjective Patient was seen in conjunction with Eva Pradhan NP. I agree with above and the following is a representation of my independent history and physical examination. Patient reports that she feels like her breathing is much improved today. She also states that she is urinating better today. Objective Data Lab / Micro Data Result Diagrams: 10/04/20 05:24 10/04/20 11:18 Physical Exam Const alert, oriented x3, no apparent distress and average body habitus Constitutional Narrative: Older white female, sitting up in a chair, appears much older than stated age, appears nontoxic, no distress Nutritional Appearance: thin HEENT head/scalp atraumatic Head and Scalp: normocephalic Eyes PERRL and EOMs intact bilaterally Neck supple Neck Narrative: Trachea midline Resp normal respiratory effort, no retractions and no use of accessory muscles Resp Narrative: Diffuse fine crackles Auscultation: crackles; Negative for rales, rhonchi or wheezes Cardio regular rate, S1 normal heart sound, S2 normal heart sound, no murmurs, no rub, no gallops, no clicks and no JVD Cardio Narrative: Irregular rhythm GI normal to inspection, nondistended, normoactive bowel sounds, soft to palpation, non-tender and non-distended Extremity Extremity Narrative: Bilateral upper and lower extremity edema-pitting General Extremity: edema Peripheral Pulses: Yes pulses 2+ throughout Skin no rashes or lesions noted, no wounds, skin turgor normal, no jaundice, no petechiae and no mottling Skin Narrative: Thin skin with scattered ecchymosis Neuro oriented x3 Sensorium / Orientation: awake and alert Psych Psych Narrative: Flat affect, minimal eye contact, appropriate interaction Assessment & Plan Assessment/Plan (1) Acute on chronic respiratory failure with hypercapnia: (2) Acute on chronic congestive heart failure: QUALIFIERS: Heart failure type: systolic Qualified Code(s): I50.23 - Acute on chronic systolic (congestive) heart failure (3) Acute kidney failure: (4) Hyponatremia: PLAN: Assessment: Acute on chronic hypoxic and hypercapnic respiratory failure Acute on chronic heart failure with reduced ejection fraction OSWALDO Persistent atrial fibrillation Nonischemic cardiomyopathy Hyponatremia Hyperkalemia Leukocytosis History of hypertension Hyperlipidemia Hypothyroidism History of mitral valve annuloplasty/tricuspid valve annuloplasty History of breast cancer Severe malnutrition Plan: -Patient is not a good candidate for dialysis given her blood pressure issues -Suspect cardiorenal syndrome -Discussed case with nephrology and they are agreeable that hospice would be an appropriate plan of care -Kayexalate given this morning and repeat potassium has come down to 5.0 -Repeat BMP in a.m. -Marked leukocytosis -Continue metoprolol--> may need to hold if blood pressure is low -Palliative care consult is in place -I currently recommend hospice at discharge as patient has had multiple admissions and now has multisystem organ failure with pulmonary fibrosis, heart failure with an EF of 10 to 15% from a nonischemic cardiomyopathy and now acute kidney injury related to cardiorenal syndrome with hypotension.--> Mrs. Kearney was not all that interested in a discussion about hospice today with myself or anybody else on the team. Per discussion with family they are more open to a hospice discussion. We will follow up with palliative care's recommendations and see how their discussion goes with the patient. Charges/Coding Visit Charges Inpatient E&M: 59393 Subs Hosp L2
[2020-10-04] MEDS: Metoprolol(XL)Succ 25 MG Tablet PO (14:47)
--- NOTE | 2020-10-04 15:35 | PCM.PN.REN ---
Subjective Subjective Following for acute kidney injury on chronic kidney disease. The patient feels better today. The patient has been incontinent of urine, so quantification of urine output is unknown. She subjectively believes that her urine output has improved. Objective Data Objective Data Vital Signs: Vital Signs Temp Pulse Resp BP Pulse Ox 97.8 F 97 12 106/60 99 10/04/20 11:13 10/04/20 14:47 10/04/20 11:13 10/04/20 14:47 10/04/20 14:44 Oxygen Flow Rate (L/min) 3 Oxygen Delivery Method Nasal Cannula Weight: 54.5 kg Body Mass Index (BMI) 23.3 Intake & Output: Intake and Output for Last 24 Hours 10/02/20 10/03/20 10/04/20 23:59 23:59 23:59 Intake Total 1090 / 1090 600 / 700 1683.33 / 1683.33 Output Total 350 / 350 200 / 200 Balance 740 / 740 400 / 500 1683.33 / 1683.33 Lab / Micro Data Result Diagrams: 10/04/20 05:24 10/04/20 11:18 Labs: Laboratory Results - last 24 hr 10/04/20 10/04/20 10/04/20 05:24 05:24 11:18 WBC 20.2 H RBC 3.54 L Hgb 12.1 Hct 37.1 MCV 104.8 H MCH 34.2 H MCHC 32.6 RDW Std Deviation 57.0 H RDW Coeff of Tita 14.8 H Plt Count 155 MPV 10.8 Immature Gran % (Auto) 1.300 H Neut % (Auto) 87.0 H Lymph % (Auto) 2.8 L [place] % (Auto) 8.8 Eos % (Auto) 0.0 Baso % (Auto) 0.1 Absolute Neuts (auto) 17.5 H Absolute Lymphs (auto) 0.57 L Nucleated RBC % 0 Diff Path Review May foll Sodium 123 L 124 L Potassium 6.4 H* 5.0 Chloride 75 L 79 L Carbon Dioxide 31.0 30.0 Anion Gap 17 H 15 BUN 76 H 82 H Creatinine 2.81 H 3.15 H Estim Creat Clear Calc 11.66 10.40 Est GFR (MDRD) Af Amer 21 L 18 L Est GFR (MDRD) Non-Af 17 L 15 L BUN/Creatinine Ratio 27.0 H 26.0 H Glucose 96 219 H Calcium 10.0 9.6 Radiography Diagnostic Testing: Radiology Impression Echocardiogram 10/02/20 05:55 Interpretation Summary Mildly dilated left ventricle. The estimated ejection fraction is 10-15 %. There is evidence of diastolic dysfunction. There is severe global hypokinesis of the left ventricle. Mild global right ventricular systolic dysfunction. The left atrium is moderately enlarged. Trivial mitral valve insufficiency. Moderate (2+) tricuspid valve insufficiency. Pulmonary artery systolic pressure is 60 mmHg. Mild (1+) aortic valve insufficiency. Ordering Physician: Salma Guadalupe Referring Physician: MABEL LICEA Performed By: Lyssa Castorena, RDCS, RVT Physical Exam Narrative Patient is awake alert. No accessory muscle use. Neck is supple. Head atraumatic normocephalic. Mouth: Dry mucosa Heart: S1-S2 regular Chest: bibasilar crackles on auscultation. Abdomen no tenderness positive bowel sounds no distention Neurology: Moving her limbs. Awake alert oriented Extremity: No lower extremities edema Assessment & Plan Assessment/Plan (1) Acute kidney failure: PLAN: Despite IV fluid, the patient's renal function has continued to deteriorate. Urine output cannot be quantified. I suspect that the patient has progressive renal dysfunction due to cardiorenal OSWALDO. The patient tells me that her appetite has not been bad today, so I will stop IV fluid for now. I will hold off on restarting diuretics since her weight has remained stable. She is not a candidate for dialysis. Her blood pressure is simply too low to tolerate chronic dialysis especially as outpatient. Continue current supportive care. Discussed plan with hospital medicine team. (2) Hyponatremia: PLAN: The patient is asymptomatic from hyponatremia. Serum sodium level is stable. This is also likely due to heart failure. We will restart Lasix tomorrow if sodium is worse. We will check blood pressure first. (3) Hyperkalemia: PLAN: Potassium level is better. Hyperkalemia is likely due to OSWALDO. She did receive sodium polystyrene sulfonate. Recheck potassium level again tomorrow. (4) Heart failure: PLAN: The patient is currently off of diuretic. She is on beta-anay with low blood pressure. Because of acute kidney injury, she is not a candidate for FLAVIA inhibitor or ARB. Recheck weight tomorrow. If there is rising weight, we can restart diuretic. (5) Chronic hypoxemic respiratory failure: PLAN: The patient is on nasal cannula oxygen today.
[2020-10-04] MEDS: Atorvastatin Calcium 20 MG Tablet PO (22:13)
[2020-10-04] MEDS: Cholecalciferol (VIT D3) 25 MCG TABLET (1,000 UNITS) 50 MCG PO (22:14)
[2020-10-05] VITALS (12 sets, daily range): BP systolic 80–109; BP diastolic 49–66; PULSE 99–127; RESP 16–20; TEMP 36.3–36.6; O2SAT 94–98
[2020-10-05] MEDS: Levothyroxine 50 MCG Tablet PO (05:06)
[2020-10-05] MEDS: Menthol/Lanolin/Calamine/Znox 113 GM Tube 1 APPLIC TOPICAL ×3 (05:09→22:12)
[2020-10-05 06:20] LABS: Absolute Lymphocyte Count 0.72 X10^3/uL (0.83-4.51); Absolute Neutrophil Count 12.6 X10^3/uL (2.0-7.7); Basophil# 0.02 X10^3/uL; Basophil% 0.1 % (0-1); Hematocrit 36.1 % (37-47); Hemoglobin 11.9 g/dL (12.0-15.0); Lymphocyte # 0.72 X10^3/ul (0.83-4.51); Lymphocyte % 4.9 % (19-41); Mean Corpuscular Volume 103.1 fL (81-99); Mean Platelet Vol. 10.9 fl (6.2-12.0); Monocyte# 1.14 X10^3/uL; Monocyte% 7.8 % (0-10); NRBC Flagged by Analyzer 0.2 % (0-5); Neutrophil # 12.61 X10^3/uL (2.7-7.7); Neutrophil % 86.3 % (47-70); Platelet Count 100 K/mm3 (150-450); RBC Distribution Width CV 14.8 % (11.6-14.6); RBC Distribution Width SD 56.4 fl (35.1-43.9); White Blood Count 14.6 K/mm3 (4.4-11.0)
[2020-10-05 06:42] LABS: Anion Gap 10 (5-15); BUN 83 mg/dL (7-18); BUN/Creat Ratio 32.7 RATIO (10-20); Calcium,Total 8.8 mg/dL (8.5-10.1); Chloride 76 mmol/L (98-107); Creatinine, Serum 2.54 mg/dL (0.55-1.02); EST Glomerular Filtration Rate 19 mL/min (>60); Est Glom Filt Rate - Afr Amer 23 mL/min (>60); Glucose 96 mg/dL (74-106); Potassium 4.1 mmol/L (3.5-5.1); Sodium Level 123 mmol/L (136-145)
[2020-10-05] MEDS: Amiodarone 200 MG Tablet 100 MG PO (09:11)
[2020-10-05] MEDS: Loratadine 10 MG Tablet PO (09:12)
[2020-10-05] MEDS: guaiFENesin 1,200 MG Tablet 1200 MG PO ×2 (09:17→22:12)
[2020-10-05] MEDS: Metoprolol(XL)Succ 25 MG Tablet PO (09:18)
--- NOTE | 2020-10-05 10:41 | PN.RENAL_ITS ---
Subjective Subjective Following for acute kidney injury on chronic kidney disease. The patient feels subjectively better today. She denies increasing shortness of breath. She denies chest pain, nausea, or vomiting. Objective Data Objective Data Vital Signs: Vital Signs Temp Pulse Resp BP Pulse Ox 97.9 F 111 H 18 100/61 94 10/05/20 07:38 10/05/20 09:18 10/05/20 07:38 10/05/20 07:38 10/05/20 08:40 Oxygen Flow Rate (L/min) 3 Oxygen Delivery Method Nasal Cannula Weight: 58.1 kg Body Mass Index (BMI) 23.3 Intake & Output: Intake and Output for Last 24 Hours 10/03/20 10/04/20 10/05/20 23:59 23:59 23:59 Intake Total 600 / 700 2485.83 / 2485.83 Output Total 200 / 200 300 / 300 Balance 400 / 500 2485.83 / 2485.83 -300 / -300 Lab / Micro Data Result Diagrams: 10/05/20 05:55 10/05/20 05:55 Labs: Laboratory Results - last 24 hr 10/04/20 10/05/20 10/05/20 11:18 05:55 05:55 WBC 14.6 H RBC 3.50 L Hgb 11.9 L Hct 36.1 L MCV 103.1 H MCH 34.0 H MCHC 33.0 RDW Std Deviation 56.4 H RDW Coeff of Tita 14.8 H Plt Count 100 L MPV 10.9 Immature Gran % (Auto) 0.900 Neut % (Auto) 86.3 H Lymph % (Auto) 4.9 L [place] % (Auto) 7.8 Eos % (Auto) 0.0 Baso % (Auto) 0.1 Absolute Neuts (auto) 12.6 H Absolute Lymphs (auto) 0.72 L Nucleated RBC % 0.2 Sodium 124 L 123 L Potassium 5.0 4.1 Chloride 79 L 76 L Carbon Dioxide 30.0 37.0 H Anion Gap 15 10 BUN 82 H 83 H Creatinine 3.15 H 2.54 H Estim Creat Clear Calc 10.40 12.90 Est GFR (MDRD) Af Amer 18 L 23 L Est GFR (MDRD) Non-Af 15 L 19 L BUN/Creatinine Ratio 26.0 H 32.7 H Glucose 219 H 96 Calcium 9.6 8.8 Radiography Diagnostic Testing: Radiology Impression Echocardiogram 10/02/20 05:55 Interpretation Summary Mildly dilated left ventricle. The estimated ejection fraction is 10-15 %. There is evidence of diastolic dysfunction. There is severe global hypokinesis of the left ventricle. Mild global right ventricular systolic dysfunction. The left atrium is moderately enlarged. Trivial mitral valve insufficiency. Moderate (2+) tricuspid valve insufficiency. Pulmonary artery systolic pressure is 60 mmHg. Mild (1+) aortic valve insufficiency. Ordering Physician: Salma Guadalupe Referring Physician: MABEL LICEA Performed By: Lyssa Castorena, ANILACS, RVT Physical Exam Narrative Patient is awake alert. No accessory muscle use. Neck: + JVD, supple. Head: Atraumatic normocephalic. Mucous membrane moist. Heart: S1-S2 normal. No rubs or murmurs. Chest: Bibasilar crackles on auscultation. Abdomen: Normal bowel sound, soft and nontender to palpation. Extremity: 3+ lower extremities edema. Assessment & Plan Assessment/Plan (1) Acute kidney failure: PLAN: Despite IV fluid, the patient's renal function deteriorated. So, IV fluid was stopped yesterday on 10/04/2020. Urine output cannot be quantified, but she has gained 4 kg since admission. I suspect that the patient has progressive renal dysfunction due to cardiorenal OSWALDO. The patient is volume overloaded on exam with increasing lower extremity edema and crackles on auscultation of the lungs. Therefore, I will dose her with 60 mg IV Lasix today. We will reevaluate the patient's volume status and renal function again tomorrow. We will decide on further diuresis tomorrow. She is not a candidate for dialysis. Her blood pressure is simply too low to tolerate chronic dialysis especially as outpatient. Discussed plan with hospital medicine team. (2) Hyponatremia: PLAN: The patient is asymptomatic from hyponatremia. Serum sodium level is stable. This is also likely due to heart failure. As mentioned above, I will give her IV Lasix today. If hyponatremia is primarily due to heart failure, diuresis will help. (3) Hyperkalemia: PLAN: Potassium level is normal today at 4.1. Hyperkalemia was likely due to OSWALDO. She did receive sodium polystyrene sulfonate on 10/04/2020. Recheck potassium level again tomorrow. (4) Heart failure: PLAN: The patient is currently off of scheduled diuretic. She is on beta- anay. Because of acute kidney injury, she is not a candidate for FLAVIA inhibitor or ARB. As mentioned above, I will give the patient 60 mg IV Lasix today. Reassess volume status, renal function, and response to diuresis again tomorrow. (5) Chronic hypoxemic respiratory failure: PLAN: The patient is on nasal cannula oxygen today. Continue to treat heart failure as above.
[2020-10-05] MEDS: Furosemide 100 MG/10 ML Vial 60 MG IV (11:35)
[2020-10-05] MEDS: 0.9% Saline Lock 10 ML Syringe IV ×2 (11:36→22:12)
[2020-10-05 11:45] LABS: Pathologist Review Reviewed
[2020-10-05] MEDS: APIXABAN 2.5 MG TABLET PO ×2 (12:30→22:13)
--- NOTE | 2020-10-05 13:07 | CASEMGMT ---
SW went to patient's room to discuss POA papers as her niece was just here and they were asking about this. Patient was in agreement with doing the documents. SW was grabbing a chair to sit down and patient said she is done. SW asked her about Hospice. She said she wants to go home and have Hospice take care of her. SW told her they would not be there all the time. She confirmed she does have a caregiver 8 hours a day. SW asked if she would like HENOK to send a referral to Hospice and she said sure. HENOK called patient's niece, introduced self and role at [facility]. HENOK told her about conversation SW just had with patient and that she wants home on Hospice. SW told her SW wanted to check in with her to see if this is even possible. She said she would have to contact the agency to see if they could provide 24/7 care. SW told her Hospice would likely contact her to set up an appt. HENOK told her they could even do a phone call if that works better for her. HENOK then called [facility] with referral as well as faxed referral. Deloris Bray [employer]
--- NOTE | 2020-10-05 14:29 | PCM.PN.HOSP ---
Documented by User: Eva Pradhan CHIEF CONTROLLER, CHIEF CONTROLLER-C 10/05/20 14:37 Subjective Subjective Patient seen and examined. Denies worsening shortness of breath. Again, discussed with patient plan of care including hospice services in which patient's niece was present during conversation. Patient amendable to home with hospice transition. Objective Data Objective Data Vital Signs: Vital Signs Temp Pulse Resp BP Pulse Ox 97.9 F 99 16 109/64 98 10/05/20 13:26 10/05/20 13:26 10/05/20 13:10/05/20 13:10/05/20 13:26 Oxygen Flow Rate (L/min) 3 Oxygen Delivery Method Nasal Cannula Weight: 128 lb 1.417 oz Body Mass Index (BMI) 23.3 Intake & Output: Intake and Output for Last 24 Hours 10/03/20 10/04/20 10/05/20 23:59 23:59 23:59 Intake Total 600 / 700 2485.83 / 2485.83 Output Total 200 / 200 300 / 300 Balance 400 / 500 2485.83 / 2485.83 -300 / -300 Lab / Micro Data Result Diagrams: 10/05/20 05:55 10/05/20 05:55 Labs: Laboratory Results - last 24 hr 10/04/20 10/05/20 10/05/20 05:24 05:55 05:55 WBC 14.6 H RBC 3.50 L Hgb 11.9 L Hct 36.1 L MCV 103.1 H MCH 34.0 H MCHC 33.0 RDW Std Deviation 56.4 H RDW Coeff of Tita 14.8 H Plt Count 100 L MPV 10.9 Immature Gran % (Auto) 0.900 Neut % (Auto) 86.3 H Lymph % (Auto) 4.9 L Pitt % (Auto) 7.8 Eos % (Auto) 0.0 Baso % (Auto) 0.1 Absolute Neuts (auto) 12.6 H Absolute Lymphs (auto) 0.72 L Nucleated RBC % 0.2 Diff Path Review Reviewed Sodium 123 L Potassium 4.1 Chloride 76 L Carbon Dioxide 37.0 H Anion Gap 10 BUN 83 H Creatinine 2.54 H Estim Creat Clear Calc 12.90 Est GFR (MDRD) Af Amer 23 L Est GFR (MDRD) Non-Af 19 L BUN/Creatinine Ratio 32.7 H Glucose 96 Calcium 8.8 Physical Exam Const alert, oriented x3 and no apparent distress Orientation / Consciousness: awake, oriented to person, oriented to place and oriented to time HEENT normocephalic and moist oral mucous membranes Eyes PERRL, EOMs intact bilaterally and conjunctivae normal Neck no lymphadenopathy Resp clear to auscultation bilaterally Auscultation: diminished lung sounds Cardio regular rate, regular rhythm and no murmurs Peripheral Pulses: pulses 2+ throughout GI normal to inspection, nondistended, normoactive bowel sounds, non-tender and non-distended Extremity normal to inspection General Extremity: edema right upper extremity and bilateral lower extremity Skin no rashes or lesions noted Lesions: no lesions Rashes: no rashes Trauma: no lacerations or abrasions Neuro CN's II-XII intact bilaterally, no focal motor deficits, no sensory deficits noted and deep tendon reflexes 2+ bilaterally Psych Mood & Affect: flat affect Assessment & Plan Assessment/Plan (1) Acute kidney failure: (2) Atrial fibrillation with rapid ventricular response: (3) Acute on chronic respiratory failure with hypercapnia: PLAN: 1. Acute on chronic heart failure with reduced ejection fraction/end-stage CHF secondary to nonischemic cardiomyopathy-echocardiogram demonstrated an EF of 10 to 15%, moderate tricuspid valve insufficiency, pulmonary artery systolic pressure 60 mmHg. Echocardiogram August 2020 at [facility] demonstrated an EF of 20%. Patient is on Bumex, spironolactone at baseline. Nephrology consulted. IV Lasix x1 today per nephrology recommendations. Patient agreeable to home with hospice transition, awaiting home set up arrangements. 2. Persistent atrial fibrillation with RVR-on Eliquis, metoprolol increased, on amiodarone, rate controlled. 3. Acute on chronic hypoxic and hypercapnic respiratory failure-pulmonary medicine following. Chronic respiratory failure secondary to CHF with questionable history of COPD. Recent CT of chest showed interstitial groundglass changes which may represent interstitial lung disease. On 3 L nasal cannula at baseline. Plan to follow-up with pulmonary medicine as outpatient for further outpatient evaluation and management. 4. Acute kidney injury on suspected CKD stage IIIb-no history of prior labs for comparison. Nephrology consulted. IV Lasix x1 today, trend BMP. 5. Hyponatremia-suspect secondary to diuretic regimen. Trend labs. 6. Hypertension-stable, continue metoprolol with hold parameters. Aldactone on hold. 7. Hyperlipidemia-continue statin. 8. Nonischemic cardiomyopathy status post AICD placement- echo as noted above. Continue medical management. 9. Hypothyroidism- continue Synthroid. 10. History of mitral valve annuloplasty/tricuspid valve annuloplasty (2014) 11. History of breast cancer-in remission. DVT prophylaxis- Eliquis This patient was seen by JOYCE ShortC under the supervision of Dr. Huggins. Documented by User: Dr. Deepthi Huggins DO 10/05/20 15:27 Subjective Subjective Patient was seen in conjunction with Eva Pradhan NP. I agree with above and the following is representation of my independent history and physical examination. Patient indicates she significantly tired and feels like she is done fighting. She states that she is ready to go home with hospice. She requests a glass of ice water. Objective Data Lab / Micro Data Result Diagrams: 10/05/20 05:55 10/05/20 05:55 Physical Exam Const alert, oriented x3 and no apparent distress Constitutional Narrative: Older white female who appears older than stated age, sitting up in bed, appears fatigued but in no distress Exam Limitations: no limitations HEENT head/scalp atraumatic Head and Scalp: normocephalic Resp normal respiratory effort, no retractions and no use of accessory muscles Auscultation: crackles; Negative for rales, rhonchi or wheezes Cardio S1 normal heart sound, S2 normal heart sound, no rub, no gallops, no clicks and no JVD; Negative for no murmurs Cardio Narrative: Tachycardia, rate irregular GI normal to inspection, nondistended, normoactive bowel sounds, soft to palpation, non-tender and non-distended Extremity Extremity Narrative: Bilateral upper and lower extremity pitting edema, no cyanosis or clubbing General Extremity: edema Peripheral Pulses: Yes pulses 2+ throughout Skin no wounds, skin turgor normal, no jaundice, no petechiae and no mottling Skin Narrative: Thin skin with scattered ecchymosis Neuro oriented x3, moves all extremities and no focal motor deficits Neuro Narrative: Marked generalized weakness Sensorium / Orientation: awake and alert Speech: speech normal Psych Psych Narrative: Affect is flat Assessment & Plan Assessment/Plan (1) Acute kidney failure: (2) Atrial fibrillation with rapid ventricular response: (3) Acute on chronic respiratory failure with hypercapnia: (4) Acute on chronic congestive heart failure: QUALIFIERS: Heart failure type: systolic Qualified Code(s): I50.23 - Acute on chronic systolic (congestive) heart failure PLAN: Assessment: Acute on chronic hypoxic and hypercapnic respiratory failure Acute on chronic heart failure with reduced ejection fraction OSWALDO Persistent atrial fibrillation Nonischemic cardiomyopathy Hyponatremia Hyperkalemia Leukocytosis History of hypertension Hyperlipidemia Hypothyroidism History of mitral valve annuloplasty/tricuspid valve annuloplasty History of breast cancer Severe malnutrition Plan: Patient is agreeable to home with hospice Plan for discharge tomorrow once home hospice can be arranged and equipment can be delivered Charges/Coding Visit Charges Inpatient E&M: 49186 Subs Hosp L2
--- NOTE | 2020-10-05 15:28 | CASEMGMT ---
HENOK received a call from patient's niece, Jessica. She said she talked with [facility] where patient's private duty aides are from. They will need some time to arrange 06/11 care. They may be able to have this lined up by Sunday. Jessica said that patient cannot be home by herself. She said she may have to go to a residential until all of this is set up. HENOK will follow up tomorrow. Deloris BAIRD
[2020-10-05] MEDS: Atorvastatin Calcium 20 MG Tablet PO (22:13)
[2020-10-05] MEDS: Cholecalciferol (VIT D3) 25 MCG TABLET (1,000 UNITS) 50 MCG PO (22:13)
--- NOTE | 2020-10-05 23:32 | PCM.HOSP.N ---
Hospitalist Note Informed by nursing that patient blood pressure was systolic in 80s and was tachycardic. Informed by nursing that the plan was for patient to go home with hospice on the . Verified with the patient that that is still the plan. Also discussed aggressiveness of care. Since she is going home with hospice I did recommend de-escalation of care, removing telemetry and focus on symptom control. Patient is in agreement to that. So I will discontinue telemetry, DC VSA and add Roxanol and Intensol for symptom control.
[2020-10-06 04:17] VITALS: BP 107/42; PULSE 112; RESP 22; TEMP 36.1; O2SAT 96
[2020-10-06 06:05] LABS: Absolute Lymphocyte Count 0.71 X10^3/uL (0.83-4.51); Absolute Neutrophil Count 11.8 X10^3/uL (2.0-7.7); Basophil# 0.02 X10^3/uL; Basophil% 0.1 % (0-1); Hematocrit 36.6 % (37-47); Lymphocyte # 0.71 X10^3/ul (0.83-4.51); Lymphocyte % 5.1 % (19-41); Mean Corp Hgb Conc 32.8 g/dL (32-36); Mean Corpuscular Hgb 34.3 pg (27.0-32.0); Mean Corpuscular Volume 104.6 fL (81-99); Mean Platelet Vol. 11.3 fl (6.2-12.0); Monocyte# 1.25 X10^3/uL; Monocyte% 8.9 % (0-10); NRBC Flagged by Analyzer 0.2 % (0-5); Neutrophil # 11.84 X10^3/uL (2.7-7.7); Neutrophil % 84.7 % (47-70); Platelet Count 102 K/mm3 (150-450); RBC Distribution Width CV 15.1 % (11.6-14.6)
[2020-10-06] MEDS: Menthol/Lanolin/Calamine/Znox 113 GM Tube 1 APPLIC TOPICAL ×3 (06:17→21:53)
[2020-10-06] MEDS: Levothyroxine 50 MCG Tablet PO (06:17)
[2020-10-06 06:29] LABS: Anion Gap 13 (5-15); BUN 88 mg/dL (7-18); BUN/Creat Ratio 37.1 RATIO (10-20); Calcium,Total 8.5 mg/dL (8.5-10.1); Chloride 76 mmol/L (98-107); Creatinine, Serum 2.37 mg/dL (0.55-1.02); EST Glomerular Filtration Rate 21 mL/min (>60); Est Glom Filt Rate - Afr Amer 25 mL/min (>60); Estimated Creatinine Clearance 13.83 ml/min; Glucose 104 mg/dL (74-106); Potassium 4.6 mmol/L (3.5-5.1); Sodium Level 121 mmol/L (136-145)
[2020-10-06 07:09] VITALS: O2SAT 96
--- NOTE | 2020-10-06 08:44 | CASEMGMT ---
SW called Hospice to see if going to the Inpatient Hospice Unit was an option while patient's niece lines up 24/7 care. She said they have several other family's looking for private duty right now and they are not having any luck. She said respite is only 5 days and at the end of that 5 days the patient would have to leave the Inpatient Unit. SW will talk with patient and niece about SNF placement on Hospice until 24/7 care can be lined up. Deloris Bray [employer] RECORDS CODER OLI
[2020-10-06 10:15] VITALS: BP 94/56; PULSE 123; RESP 20; TEMP 36.4; O2SAT 100
[2020-10-06] MEDS: Loratadine 10 MG Tablet PO (10:40)
[2020-10-06] MEDS: Amiodarone 200 MG Tablet 100 MG PO (10:40)
[2020-10-06] MEDS: guaiFENesin 1,200 MG Tablet 1200 MG PO ×2 (10:41→21:53)
[2020-10-06] MEDS: APIXABAN 2.5 MG TABLET PO ×2 (10:41→21:53)
--- NOTE | 2020-10-06 11:27 | CASEMGMT ---
Nirav at [facility] updated that pt signed Hospice papers and will go to SNF on hospice on discharge, voices understanding. Radha ALICIA CM
--- NOTE | 2020-10-06 11:31 | CASEMGMT ---
HENOK spoke with Jocelyne liaison from Hospice and papers were signed. SW will be in to discuss which SNF. Deloris Bray CHANNEL MAN OLI
--- NOTE | 2020-10-06 11:56 | PCM.TXEXTCAR ---
Diet 10/02/20 14:56 Diet: Sodium Restricted (MOD) Food consistency:: Regular Liquid Consistency:: Regular/Thin Type of Dietary Supplement:: Nepro Fluid restriction:: 1500 mL Diet Comments: 120ml nepro TID w/ meals Problem/Diagnosis (1) Acute kidney failure: Status: Acute (2) Atrial fibrillation with rapid ventricular response: Status: Acute (3) Acute on chronic respiratory failure with hypercapnia: Status: Chronic (4) Acute on chronic congestive heart failure: Status: Chronic Allergies/Procedures Done in Hospital Allergies amoxicillin Adverse Reaction (Verified 10/01/20 18:13) intolerance codeine Adverse Reaction (Verified 10/01/20 18:13) intolerance iodine Adverse Reaction (Verified 10/01/20 18:13) intolerance oxycodone Adverse Reaction (Verified 10/01/20 18:13) intolerance Penicillins Adverse Reaction (Verified 10/01/20 18:13) intolerance Dietary and Speech Recommendations Dietitian Recommendations/Changes: Continue sodium-restricted/1500ml FR diet; further renal diet restrictions as indicated if intake improves. Will d/c ensure enlive w/ medpass and offer 120ml nepro TID w/ meals instead. Discharge Plan Admission Admit Date/Time: 10/01/20 18:00 Attending Provider: Deepthi Huggins Primary Care Provider: Carmen Lee Consulting Providers: Pedro Bagley ; Turner Farah ; Marichuy Huizar NP ; Cecily Leslie Discharge Orders/Prescriptions Prescriptions: No Action Atorvastatin Calcium tablet 20 mg PO QHS RF: 0 Bumetanide tablet 2 mg PO BID RF: 0 Eliquis tablet 5 mg PO BID RF: 0 Levothyroxine tablet 50 mcg PO DAILY RF: 0 Metolazone tablet 2.5 mg PO DAILY PRN (Reason: if weight gain >3 pounds) RF: 0 Potassium Chloride tablet 10 meq PO BID RF: 0 Amiodarone 100 MG tablet 100 mg PO DAILY RF: 0 digestive enzymes Tablet 1 tab PO DAILY RF: 0 guaifenesin 600 mg Tablet Extended Release 600 mg PO QHS RF: 0 polyethylene glycol 3350 [Miralax] 17 gram Powder In Packet 17 g PO DAILY PRN (Reason: Constipation) RF: 0 loratadine 10 mg Tablet 10 mg PO DAILY RF: 0 mupirocin 2 % ointment 1 applic TOPICAL BID RF: 0 losartan 25 mg Tablet 12.5 mg PO DAILY RF: 0 spironolactone 25 mg tablet 12.5 mg PO DAILY RF: 0 metoprolol succinate 25 mg Tablet Extended Release 24 Hr 12.5 mg PO DAILY RF: 0 cholecalciferol (vitamin D3) [Vitamin D3] 50 mcg (2,000 unit) Capsule 50 mcg PO DAILY RF: 0 Referrals / Follow Up: Carmen Lee MD [Primary Care Provider] - Disposition Disposition (needs filled in before D/C Order can be placed): Hospice in Medical Facility
--- NOTE | 2020-10-06 12:04 | CASEMGMT ---
Addendum entered by Madison Martinez 10/06/20 12:58: SW spoke again w/brenda, she would like referral sent to [facility], and [facility] for Hospice. SW called [facility], spoke w/Mel again, faxed referral([phone]). SW called [facility], spoke w/Eva Blanton, faxed referral([phone]). SW will continue to follow. JALIL rPince Original Note: SW spoke w/brenda in room, Jessica Hogan, in regard to plan. As per hospice, family was trying to arrange for 24 hour care at home and were not able to do so, would now like referral to SNF, to have pt go to SNF with hospice. SW met w/brenda Lopez to review options. As per Jessica, she was named POA when pt completed POA forms in [place]. She is pt's sister's daughter, and pt's sister lives here in [place], she is 91 as per brenda Lopez, but is involved in the decision making process. We discussed where niece would like pt to go, somewhere here in [place] or near where pt's niece lives. SW provided list of SNF in local geographic area that could meet pt's medical needs, complete with quality and resource use data. Pt's niece states [facility], [place] or [facility] would be their choices, though she wants to know about visitation and whether or not pt's dog can visit. Niece not concerned about cost. Brenda Lopez had also been in touch w/a facility in [place] called [facility]. SW explained will call to find out this information and let her know. SW called [facility]([phone]), spoke w/Mel. This facility is an assisted living, not SNF. As per Mel they can take new patients who are on hospice and partner with [facility](Director is Eva Blanton, ). They can take a pt on oxygen, family is allowed to come and go, and the dog can also visit. HENOK called [facility], message left. SW called [facility], cost is $250-$265/day. Visits at present are 2 people at a time, but it's changing this week to visitation any time, with any number of visitors. The dog can visit, [facility] just needs a copy of the dog's shot record. HENOK called [facility], cost is $255 for a shared room and $283 for a private room per day. They are opening up visitation as well, The dog can visit but needs to stay on a leash, and [facility] needs a copy of the dog's shot record. HENOK gave all of this information to nijesenia Lopez. She is going to call pt's sister and let SW know where she would like a referral sent. HENOK will continue to follow. JALIL Prince
--- NOTE | 2020-10-06 13:47 | CASEMGMT ---
Per HENOK [facility] can take patient on Hospice. They will be sending a form to be completed. They prefer tomorrow so they can get her room set up. HENOK will notify POWER GRADER OPERATOR. Deloris BAIRD
[2020-10-06 14:00] VITALS: BP 91/56; PULSE 107; RESP 20; TEMP 36.4; O2SAT 100
--- NOTE | 2020-10-06 14:04 | PN.HOSP_ITS ---
Documented by User: Eva Pradhan CORRECTION OFFICER, CORRECTION OFFICER-C 10/06/20 14:14 Subjective Subjective Patient seen and examined. Signed hospice papers, plan for SNF with hospice at discharge as patient feels she can no longer manage at home even with assistance. Hypotension overnight. Improved. Patient denies new symptoms or complaints. Objective Data Objective Data Vital Signs: Vital Signs Temp Pulse Resp BP Pulse Ox 97.6 F L 123 H 20 H 94/56 L 100 10/06/20 10:15 10/06/20 10:15 10/06/20 10:15 10/06/20 10:15 10/06/20 10:15 Oxygen Flow Rate (L/min) 3 Oxygen Delivery Method Venturi Mask Weight: 128 lb 1.417 oz Body Mass Index (BMI) 23.3 Intake & Output: Intake and Output for Last 24 Hours 10/04/20 10/05/20 10/06/20 23:59 23:59 23:59 Intake Total 2485.83 / 2485.83 360 / 360 Output Total 700 / 950 550 / 550 Balance 2485.83 / 2485.83 -700 / -830 -190 / -190 Lab / Micro Data Result Diagrams: 10/06/20 05:34 10/06/20 05:34 Labs: Laboratory Results - last 24 hr 10/06/20 10/06/20 05:34 05:34 WBC 14.0 H RBC 3.50 L Hgb 12.0 Hct 36.6 L MCV 104.6 H MCH 34.3 H MCHC 32.8 RDW Std Deviation 57.0 H RDW Coeff of Tita 15.1 H Plt Count 102 L MPV 11.3 Immature Gran % (Auto) 1.200 H Neut % (Auto) 84.7 H Lymph % (Auto) 5.1 L Burnett % (Auto) 8.9 Eos % (Auto) 0.0 Baso % (Auto) 0.1 Absolute Neuts (auto) 11.8 H Absolute Lymphs (auto) 0.71 L Nucleated RBC % 0.2 Sodium 121 L Potassium 4.6 Chloride 76 L Carbon Dioxide 32.0 Anion Gap 13 BUN 88 H Creatinine 2.37 H Estim Creat Clear Calc 13.83 Est GFR (MDRD) Af Amer 25 L Est GFR (MDRD) Non-Af 21 L BUN/Creatinine Ratio 37.1 H Glucose 104 Calcium 8.5 Physical Exam Const alert, oriented x3 and no apparent distress Orientation / Consciousness: awake, oriented to person, oriented to place and oriented to time HEENT normocephalic and moist oral mucous membranes Eyes PERRL, EOMs intact bilaterally and conjunctivae normal Neck no lymphadenopathy Resp clear to auscultation bilaterally Auscultation: diminished lung sounds Cardio regular rate, regular rhythm and no murmurs Peripheral Pulses: pulses 2+ throughout GI normal to inspection, nondistended, normoactive bowel sounds, non-tender and non-distended Extremity normal to inspection Skin no rashes or lesions noted Lesions: no lesions Rashes: no rashes Trauma: no lacerations or abrasions Neuro CN's II-XII intact bilaterally, no focal motor deficits, no sensory deficits noted and deep tendon reflexes 2+ bilaterally Psych Mood & Affect: flat affect Assessment & Plan Assessment/Plan (1) Acute on chronic congestive heart failure: QUALIFIERS: Heart failure type: systolic Qualified Code(s): I50.23 - Acute on chronic systolic (congestive) heart failure PLAN: 1. Acute on chronic heart failure with reduced ejection fraction/end-stage CHF secondary to nonischemic cardiomyopathy-echocardiogram demonstrated an EF of 10 to 15%, moderate tricuspid valve insufficiency, pulmonary artery systolic pressure 60 mmHg. Echocardiogram August 2020 at [facility] demonstrated an EF of 20%. Patient is on Bumex, spironolactone at baseline. Nephrology consulted. Continue diuretics per nephrology recommendations. Plan for assisted living facility under hospice services, [place] 10/07/2020. 2. Persistent atrial fibrillation with RVR-on Eliquis, metoprolol, amiodarone, rate controlled. 3. Acute on chronic hypoxic and hypercapnic respiratory failure-pulmonary medicine following. Chronic respiratory failure secondary to CHF with questionable history of COPD. Recent CT of chest showed interstitial ground glass changes which may represent interstitial lung disease. On 3 L nasal cannula at baseline. Plan to follow-up with pulmonary medicine as outpatient for further outpatient evaluation and management. 4. Acute kidney injury on suspected CKD stage IIIb-no history of prior labs for comparison. Nephrology consulted. IV Lasix x1 today, trend BMP. 5. Hyponatremia-suspect secondary to diuretic regimen versus hypervolemia. 6. Hypertension-stable, continue metoprolol with hold parameters. Aldactone on hold. 7. Hyperlipidemia-continue statin. 8. Nonischemic cardiomyopathy status post AICD placement- echo as noted above. Continue medical management. 9. Hypothyroidism- continue Synthroid. 10. History of mitral valve annuloplasty/tricuspid valve annuloplasty (2014) 11. History of breast cancer-in remission. DVT prophylaxis- Eliquis This patient was seen by JOYCE ShortC under the supervision of Dr. Huggins. Documented by User: Dr. Deepthi Huggins DO 10/06/20 15:20 Subjective Subjective Patient was seen in conjunction with Eva Pradhan NP. I agree with the above and the following is representation my independent history and physical examination. Patient reports he feels about the same. No worsening of shortness of breath overnight. She is had persistent hypotension and tachycardia. Awaiting discharged with hospice. Objective Data Lab / Micro Data Result Diagrams: 10/06/20 05:34 10/06/20 05:34 Physical Exam Const alert, oriented x3, no apparent distress and average body habitus Constitutional Narrative: Elderly white female sitting up in a chair, appears much older than stated age. Exam Limitations: no limitations HEENT head/scalp atraumatic Head and Scalp: normocephalic Resp normal respiratory effort, no retractions and no use of accessory muscles Resp Narrative: Bilateral bases Auscultation: crackles Cardio S1 normal heart sound, S2 normal heart sound, no murmurs, no rub, no gallops, no clicks and no JVD Cardio Narrative: Tachycardic, irregular rhythm GI normal to inspection, nondistended, normoactive bowel sounds, soft to palpation, non-tender and non-distended Extremity Extremity Narrative: Edematous-trace to 1+, no cyanosis or clubbing, extremities are cool Neuro oriented x3 and CN's II-XII intact bilaterally Neuro Narrative: Generalized weakness Sensorium / Orientation: awake, alert, oriented to person, oriented to place and oriented to time Speech: speech normal Assessment & Plan Assessment/Plan (1) Acute on chronic congestive heart failure: QUALIFIERS: Heart failure type: systolic Qualified Code(s): I50.23 - Acute on chronic systolic (congestive) heart failure (2) Acute kidney failure: (3) Atrial fibrillation with rapid ventricular response: (4) Acute on chronic respiratory failure with hypercapnia: PLAN: Assessment: Acute on chronic hypoxic and hypercapnic respiratory failure Acute on chronic heart failure with reduced ejection fraction OSWALDO Persistent atrial fibrillation Nonischemic cardiomyopathy Hyponatremia Hyperkalemia Leukocytosis History of hypertension Hyperlipidemia Hypothyroidism History of mitral valve annuloplasty/tricuspid valve annuloplasty History of breast cancer Severe malnutrition Plan: Patient is agreeable to home with hospice Discharge plan for today was altered to tomorrow as patient needed skilled facility admission with hospice -CODE STATUS changed to SLIDING JOINT MAKER Medications that are predominantly symptom/comfort oriented have been discontinued Charges/Coding Visit Charges Inpatient E&M: 69937 Subs Hosp L2
--- NOTE | 2020-10-06 15:16 | CASEMGMT ---
HENOK called patient's niece and let her know that [facility]. HENOK completed the form that was sent to HENOK from [employer]. SW will get patient to sign this in the am as she is sleeping. HENOK called [facility] and spoke with Bob letting him know that patient is going to a facility in [place] so she will be going with a different Hospice. Plan: d/c to [facility] care with [facility]. Deloris BAIRD
--- NOTE | 2020-10-06 15:23 | PCM.PN.REN ---
Subjective Subjective no new events Objective Data Objective Data Vital Signs: Vital Signs Temp Pulse Resp BP Pulse Ox 97.6 F L 107 H 20 H 91/56 L 100 10/06/20 14:00 10/06/20 14:00 10/06/20 14:00 10/06/20 14:00 10/06/20 14:00 Oxygen Flow Rate (L/min) 3 Oxygen Delivery Method Nasal Cannula Weight: 56.8 kg Body Mass Index (BMI) 23.3 Intake & Output: Intake and Output for Last 24 Hours 10/04/20 10/05/20 10/06/20 23:59 23:59 23:59 Intake Total 2485.83 / 2485.83 360 / 360 Output Total 700 / 950 550 / 550 Balance 2485.83 / 2485.83 -700 / -830 -190 / -190 Lab / Micro Data Result Diagrams: 10/06/20 05:34 10/06/20 05:34 Labs: Laboratory Results - last 24 hr 10/06/20 10/06/20 05:34 05:34 WBC 14.0 H RBC 3.50 L Hgb 12.0 Hct 36.6 L MCV 104.6 H MCH 34.3 H MCHC 32.8 RDW Std Deviation 57.0 H RDW Coeff of Tita 15.1 H Plt Count 102 L MPV 11.3 Immature Gran % (Auto) 1.200 H Neut % (Auto) 84.7 H Lymph % (Auto) 5.1 L Cataño % (Auto) 8.9 Eos % (Auto) 0.0 Baso % (Auto) 0.1 Absolute Neuts (auto) 11.8 H Absolute Lymphs (auto) 0.71 L Nucleated RBC % 0.2 Sodium 121 L Potassium 4.6 Chloride 76 L Carbon Dioxide 32.0 Anion Gap 13 BUN 88 H Creatinine 2.37 H Estim Creat Clear Calc 13.83 Est GFR (MDRD) Af Amer 25 L Est GFR (MDRD) Non-Af 21 L BUN/Creatinine Ratio 37.1 H Glucose 104 Calcium 8.5 Physical Exam Narrative Patient is awake alert. No accessory muscle use. Neck: + JVD, supple. Head: Atraumatic normocephalic. Mucous membrane moist. Heart: S1-S2 normal. No rubs or murmurs. Chest: Bibasilar crackles on auscultation. Abdomen: Normal bowel sound, soft and nontender to palpation. Extremity: 3+ lower extremities edema. Assessment & Plan Assessment/Plan (1) Acute kidney failure: PLAN: cr worse (2) Hyponatremia: PLAN: The patient is asymptomatic from hyponatremia (3) Hyperkalemia: PLAN: Potassium level is normal (4) Heart failure: PLAN: better (5) Chronic hypoxemic respiratory failure: PLAN: APPLIED RESEARCH DIRECTOR now. will sign off.
[2020-10-06 20:00] VITALS: BP 102/56; PULSE 116; RESP 18; TEMP 36; O2SAT 97
[2020-10-07 02:00] VITALS: BP 87/54; PULSE 98; RESP 66; TEMP 35.9; O2SAT 96
[2020-10-07] MEDS: Levothyroxine 50 MCG Tablet PO (05:06)
[2020-10-07] MEDS: Menthol/Lanolin/Calamine/Znox 113 GM Tube 1 APPLIC TOPICAL (05:07)
[2020-10-07 07:24] VITALS: O2SAT 95
[2020-10-07 08:30] VITALS: BP 81/47; PULSE 109; RESP 20; TEMP 36.4; O2SAT 99
[2020-10-07] MEDS: Amiodarone 200 MG Tablet 100 MG PO (08:34)
[2020-10-07] MEDS: Loratadine 10 MG Tablet PO (08:35)
[2020-10-07] MEDS: APIXABAN 2.5 MG TABLET PO (08:35)
[2020-10-07] MEDS: guaiFENesin 1,200 MG Tablet 1200 MG PO (08:35)
--- NOTE | 2020-10-07 09:55 | CASEMGMT ---
HENOK had physician and patient sign the form for [facility]. HENOK then faxed this to [facility]. HENOK called Mel at [facility] and she said she is ready for patient anytime today. She asked if HENOK was going to get in touch with [facility] for transport or if she should. HENOK told her SW will as SW does not have the discharge information yet. HENOK told her SW will let her know. Plan: d/c to [facility] on [facility]. Deloris Bray RECEIVER/LABORERChristi BAIRD
--- NOTE | 2020-10-07 10:19 | PCM.DC.SUM ---
Providers Date of Admission: 10/01/20 Primary Care Physician: Dr. Carmen Lee MD Consultations 10/03/20 08:05 Consult: Merchandise Distributor / Pulmonary Medicine Routine Consulting Provider: Pulmonary Medicine jameel Charlotte Reason for Consult: fibrosis EMERGENT Consult: No Notified: Yes Date Notified: 10/03/20 Time Notified: 08:05 Method of Notification: Verbal 10/03/20 08:47 Consult: Nephrology Routine Consulting Provider: Cecily Leslie Reason for Consult: Hyponatremia EMERGENT Consult: No Notified: Yes Date Notified: 10/03/20 Time Notified: 13:07 Method of Notification: Answering Service Reason For Visit: ACUTE ON CHRONIC CONGESTIVE HEART FAILURE Diagnosis Discharge Diagnosis (1) Acute kidney failure: Status: Acute Code(s): N17.9 - Acute kidney failure, unspecified (2) Hyponatremia: Status: Acute Code(s): E87.1 - Hypo-osmolality and hyponatremia (3) Hyperkalemia: Status: Acute Code(s): E87.5 - Hyperkalemia (4) Heart failure: Status: Acute Code(s): I50.9 - Heart failure, unspecified (5) Chronic hypoxemic respiratory failure: Status: Chronic Code(s): J96.11 - Chronic respiratory failure with hypoxia Medications at Discharge Home Medications guaifenesin 600 mg PO QHS 10/01/20 polyethylene glycol 3350 [Miralax] 17 g PO DAILY PRN 10/01/20 acetaminophen [Tylenol] 650 mg PO Q6H PRN PRN #0 tab 10/07/20 amiodarone 100 mg PO DAILY #0 tab 10/07/20 apixaban [Eliquis] 2.5 mg PO BID #0 tab 10/07/20 guaifenesin [Mucus Relief ER] 1,200 mg PO BID #0 tab 10/07/20 levothyroxine 50 mcg PO DAILY@0600 #0 tab 10/07/20 loratadine [Allergy Relief (loratadine)] 10 mg PO DAILY #0 tab 10/07/20 metoprolol succinate 25 mg PO DAILY #0 tab 10/07/20 polyethylene glycol 3350 17 g PO DAILY PRN #0 ea 10/07/20 Hospital Course Operations None Procedures 2-D Echocardiogram Summary of Care Provided Minutes Spent on Discharge: 42 Hospital Course: Mrs. Kearney is a 80-year-old female who presented to the emergency department at [facility] on 10/01/2020 with worsening shortness of breath. She has a known history of nonischemic cardiomyopathy related to treatment for breast cancer and an EF of 10 to 15%. She also has pulmonary fibrosis and is chronically on 3 L nasal cannula. She recently moved here from [place] and had a an admission in August at [facility] for acute exacerbation of CHF. A recent CT showed interstitial groundglass changes. On admission she was noted to have acute kidney injury as well for which nephrology was consulted and determined this to be related to cardiorenal syndrome. Her management was complicated secondary to chronic hypotension and tachycardia as well as worsening renal function. Attempts were made at diuresis but unfortunately Mrs. Kearney not tolerate this related to her hypotension and worsening renal function. She was on appropriate goal-directed therapy at admission. After discussions with the patient and her family regarding her overall prognosis which is extremely poor given her multisystem organ dysfunction a decision was made to transition to hospice and focus on comfort. She was discharged to an assisted living facility to have continued hospice there after discharge on 10/07/2020. Patient was stable at discharge although had persistent shortness of breath, hypotension, and tachycardia. Physical Exam Const alert and oriented x3 Constitutional Narrative: Elderly white female sitting up in bed, appears much older than stated age, appears quite fatigued but in no distress at this time. General Appearance: cooperative and comfortable Orientation / Consciousness: awake HEENT normocephalic, head/scalp atraumatic and moist oral mucous membranes Eyes PERRL, EOMs intact bilaterally and conjunctivae normal Neck supple Neck Narrative: Trachea midline Resp normal respiratory effort, no retractions and no use of accessory muscles Resp Narrative: Diffuse fine crackles and diminished at bases bilaterally Auscultation: crackles; Negative for rales, rhonchi or wheezes Cardio S1 normal heart sound, S2 normal heart sound, no murmurs, no rub, no gallops, no clicks and no JVD Cardio Narrative: Tachycardia with irregular rhythm GI normal to inspection, nondistended, normoactive bowel sounds, soft to palpation, non-tender and non-distended Extremity normal to inspection, full ROM and no clubbing, cyanosis or edema Skin no wounds Skin Narrative: Scattered ecchymosis, cool to touch Neuro oriented x3 Neuro Narrative: Marked generalized weakness with debility Sensorium / Orientation: awake, alert and oriented to person Speech: speech normal Psych Psych Narrative: Flat affect Weight / BMI Weight Weight: 57.2 kg Body Mass Index (BMI) 23.3 ABG / Lab / Microbiology Data Result Diagrams: 10/06/20 05:34 10/06/20 05:34 Meaningful Use Info Meaningful Use Diagnoses (Choose all that apply): CHF CHF FLAVIA/ARB ordered at discharge?: No Reason FLAVIA/ARB not ordered?: Worsening renal function Documented LVEF (%): 10 Discharge Plan Admission Admit Date/Time: 10/01/20 18:00 Primary Reason for Your Visit: Shortness of Breath Attending Provider: Deepthi Huggins Primary Care Provider: Carmen Lee Consulting Providers: Pedro Bagley ; Turner Farah ; Marichuy Huizar DAY PORTER ; Cecily Leslie Discharge Orders/Prescriptions Prescriptions: New acetaminophen [Tylenol] 325 mg Tablet 650 mg PO Q6H PRN PRN (Reason: Pain Score 1-10/Temp > 100.7 F) Qty: 0 RF: 0 polyethylene glycol 3350 17 gram Powder In Packet 17 g PO DAILY PRN (Reason: Constipation) Qty: 0 RF: 0 amiodarone 200 mg Tablet 100 mg PO DAILY Qty: 0 RF: 0 levothyroxine 50 mcg Tablet 50 mcg PO DAILY@0600 Qty: 0 RF: 0 metoprolol succinate 25 mg Tablet Extended Release 24 Hr 25 mg PO DAILY Qty: 0 RF: 0 loratadine [Allergy Relief (loratadine)] 10 mg Tablet 10 mg PO DAILY Qty: 0 RF: 0 Mucus Relief ER 1,200 mg Tablet Extended Release 12hr 1,200 mg PO BID Qty: 0 RF: 0 Eliquis 2.5 mg Tablet 2.5 mg PO BID Qty: 0 RF: 0 Continued guaifenesin 600 mg Tablet Extended Release 600 mg PO QHS RF: 0 Discontinued Atorvastatin Calcium tablet 20 mg PO QHS RF: 0 Bumetanide tablet 2 mg PO BID RF: 0 Eliquis tablet 5 mg PO BID RF: 0 Levothyroxine tablet 50 mcg PO DAILY RF: 0 Metolazone tablet 2.5 mg PO DAILY PRN (Reason: if weight gain >3 pounds) RF: 0 Potassium Chloride tablet 10 meq PO BID RF: 0 Amiodarone 100 MG tablet 100 mg PO DAILY RF: 0 digestive enzymes Tablet 1 tab PO DAILY RF: 0 loratadine 10 mg Tablet 10 mg PO DAILY RF: 0 mupirocin 2 % ointment 1 applic TOPICAL BID RF: 0 losartan 25 mg Tablet 12.5 mg PO DAILY RF: 0 spironolactone 25 mg tablet 12.5 mg PO DAILY RF: 0 metoprolol succinate 25 mg Tablet Extended Release 24 Hr 12.5 mg PO DAILY RF: 0 cholecalciferol (vitamin D3) [Vitamin D3] 50 mcg (2,000 unit) Capsule 50 mcg PO DAILY RF: 0 No Action polyethylene glycol 3350 [Miralax] 17 gram Powder In Packet 17 g PO DAILY PRN (Reason: Constipation) RF: 0 Referrals / Follow Up: Carmen Lee MD [Primary Care Provider] - Disposition Disposition (needs filled in before D/C Order can be placed): Hospice in Medical Facility Charges/Coding Visit Charges Inpatient E&M: 83711 SNF Disch >30 Min
--- NOTE | 2020-10-07 10:43 | PCM.DC ---
Discharge Instructions Follow Up Care Test Results: Test results from this visit will be discussed in further detail at your follow-up appointment, if applicable. Discharge Plan Admission Admit Date/Time: 10/01/20 18:00 Primary Reason for Your Visit: Shortness of Breath Attending Provider: Deepthi Huggins Primary Care Provider: Carmen Lee Consulting Providers: Pedro Bagley ; Turner Farah ; Marichuy Huizar SPEECH LANGUAGE PATHOLOGIST ASSISTANT ; Cecily Leslie Discharge Orders/Prescriptions Prescriptions: New acetaminophen [Tylenol] 325 mg Tablet 650 mg PO Q6H PRN PRN (Reason: Pain Score 1-10/Temp > 100.7 F) Qty: 0 RF: 0 polyethylene glycol 3350 17 gram Powder In Packet 17 g PO DAILY PRN (Reason: Constipation) Qty: 0 RF: 0 amiodarone 200 mg Tablet 100 mg PO DAILY Qty: 0 RF: 0 levothyroxine 50 mcg Tablet 50 mcg PO DAILY@0600 Qty: 0 RF: 0 metoprolol succinate 25 mg Tablet Extended Release 24 Hr 25 mg PO DAILY Qty: 0 RF: 0 loratadine [Allergy Relief (loratadine)] 10 mg Tablet 10 mg PO DAILY Qty: 0 RF: 0 Mucus Relief ER 1,200 mg Tablet Extended Release 12hr 1,200 mg PO BID Qty: 0 RF: 0 Eliquis 2.5 mg Tablet 2.5 mg PO BID Qty: 0 RF: 0 Continued guaifenesin 600 mg Tablet Extended Release 600 mg PO QHS RF: 0 Discontinued Atorvastatin Calcium tablet 20 mg PO QHS RF: 0 Bumetanide tablet 2 mg PO BID RF: 0 Eliquis tablet 5 mg PO BID RF: 0 Levothyroxine tablet 50 mcg PO DAILY RF: 0 Metolazone tablet 2.5 mg PO DAILY PRN (Reason: if weight gain >3 pounds) RF: 0 Potassium Chloride tablet 10 meq PO BID RF: 0 Amiodarone 100 MG tablet 100 mg PO DAILY RF: 0 digestive enzymes Tablet 1 tab PO DAILY RF: 0 loratadine 10 mg Tablet 10 mg PO DAILY RF: 0 mupirocin 2 % ointment 1 applic TOPICAL BID RF: 0 losartan 25 mg Tablet 12.5 mg PO DAILY RF: 0 spironolactone 25 mg tablet 12.5 mg PO DAILY RF: 0 metoprolol succinate 25 mg Tablet Extended Release 24 Hr 12.5 mg PO DAILY RF: 0 cholecalciferol (vitamin D3) [Vitamin D3] 50 mcg (2,000 unit) Capsule 50 mcg PO DAILY RF: 0 No Action polyethylene glycol 3350 [Miralax] 17 gram Powder In Packet 17 g PO DAILY PRN (Reason: Constipation) RF: 0 Referrals / Follow Up: Carmen Lee MD [Primary Care Provider] - Disposition Disposition (needs filled in before D/C Order can be placed): Hospice in Medical Facility
--- NOTE | 2020-10-07 11:42 | CASEMGMT ---
HENOK faxed d/c orders, med list and DNR to both [facility] and [facility]. HENOK called Eva at [facility] and she said she is out of the building today so she will call her road grader and ask them to schedule picking supervisor. She will have her call SW. SW received a call from [facility] and they will picking supervisor patient at 2p. They use [facility]. HENOK called Mel at [facility] and she was on the phone so HENOK left a message with the receptionist/telephone operator. HENOK notified patient's niece, RN, striping machine operator, and patient. Plan: d/c to [facility] under [facility]. [facility] will picking supervisor at 2p via cot. Deloris BAIRD
--- NOTE | 2020-10-07 11:48 | PHA.DC.MR ---
Pharmacy Service has performed discharge medication reconciliation for this patient upon transfer to Assisted Living Facility Home Medications guaifenesin 600 mg PO QHS 10/01/20 polyethylene glycol 3350 [Miralax] 17 g PO DAILY PRN 10/01/20 acetaminophen [Tylenol] 650 mg PO Q6H PRN PRN #0 tab 10/07/20 amiodarone 100 mg PO DAILY #0 tab 10/07/20 apixaban [Eliquis] 2.5 mg PO BID #0 tab 10/07/20 guaifenesin [Mucus Relief ER] 1,200 mg PO BID #0 tab 10/07/20 levothyroxine 50 mcg PO DAILY@0600 #0 tab 10/07/20 loratadine [Allergy Relief (loratadine)] 10 mg PO DAILY #0 tab 10/07/20 metoprolol succinate 25 mg PO DAILY #0 tab 10/07/20 polyethylene glycol 3350 17 g PO DAILY PRN #0 ea 10/07/20 The patient's discharge medication list was reviewed for discrepancies and discrepancies were resolved.
[2020-10-07 14:06] VITALS: BP 101/48; PULSE 107; RESP 20; TEMP 36.6; O2SAT 97
--- NOTE | 2020-10-07 14:15 | NURSING ---
called report to [facility], spoke with nurse león. Transport to be here @ 1400.
--- NOTE | 2020-10-07 14:29 | NURSING ---
called and spoke with Julia @ [facility]
== END 2020-10-07 14:49 | disposition hospice, inpatient (51) | DRG 291 ==
LOC: ED 17:54 → PCU 18:49
PROVIDERS: Hospitalist; Internal Medicine; Nurse Practitioner Family; Admitting Provider Internal Medicine; Emergency Provider Emergency Medicine; PCP Family Medicine; Visit Provider Internal Medicine
DX: I13.0 Hypertensive heart and chronic kidney disease with heart failure and stage 1 through stage 4 chronic kidney disease, or unspecified chronic kidney disease (principal); J96.22 Acute and chronic respiratory failure with hypercapnia; E43 Unspecified severe protein-calorie malnutrition; I50.23 Acute on chronic systolic (congestive) heart failure; J96.21 Acute and chronic respiratory failure with hypoxia; N17.9 Acute kidney failure, unspecified; E87.1 Hypo-osmolality and hyponatremia; E87.2 Acidosis; I48.19 Other persistent atrial fibrillation; I42.8 Other cardiomyopathies; E87.5 Hyperkalemia; J84.10 Pulmonary fibrosis, unspecified; E03.9 Hypothyroidism, unspecified; J44.9 Chronic obstructive pulmonary disease, unspecified; E78.5 Hyperlipidemia, unspecified; M81.0 Age-related osteoporosis without current pathological fracture; N18.32 Chronic kidney disease, stage 3b; H91.93 Unspecified hearing loss, bilateral; I95.9 Hypotension, unspecified; Z85.3 Personal history of malignant neoplasm of breast; Z99.81 Dependence on supplemental oxygen; Z95.810 Presence of automatic (implantable) cardiac defibrillator; Z79.01 Long term (current) use of anticoagulants; Z79.899 Other long term (current) drug therapy
CPT/HCPCS: 36415; 36600; 71045; 71250; 80048; 80053; 82803; 83605; 83735; 83880; 84100; 84484; 85025; 93005; 93306; 97110; 97162; 97166; 97530; 99251; 99285; J7030; A4216; G0463; J1940; J2405